=== PATIENT | female | born 1995 | race Caucasian/White ===

== ENCOUNTER 2020-04-09 05:46 | Emergency (ER) | payer OTHER, SELFPAY ==
--- OUTSIDE RECORDS SUMMARY | 2020-04-09 05:49 | XMS REPORT | Summary of Care ---
:1994 Author Organization [facility] Address [address] [place] [address] Care Team Providers Name Role Phone Cary Llamas SOLAR TECH Primary Care Provider Reason for Visit Reason Comments CONTROL telehealth Encounter Details Date Type Department Care Team Description 01/28/2020 Telemedicine Visit [facility]- [place], Oth er general [place] Chanell Riddle, counseling and advice [address] [facility] for contraceptive [place], [place] [address] ( Primary [phone] ST Dx) [phone] [place], [place] [address] Allergies No Known Allergiesdocumented as of this encounter (statuses as of 01/28/2020) Medications Medication Sig Dispensed Refills Start Date End Date Status norgestimate-ethinyl Take 1 tablet by 1 Package 2 01/28/2020 Active estradiol (ORTHO mouth daily. TRI-CYCLEN, 28,) 0.18/0.215/0.25 mg-35 mcg (28) tabletIndications: Other general counseling and advice for contraceptive management documented as of this encounter (statuses as of 01/28/2020) Active Problems Problem Noted Date Well woman exam 12/10/2019 Screen for STD (sexually transmitted disease) 12/10/19 20 Encounter for other general counseling or advice on co ntraception 12/10/2019 BMI 24.0-24.9, adult 12/10/2019 Tobacco use disorder 12/10/2019 Vaginal discharge 12/10/2019 documented as of this encounter (statuses as of 01/28/2020) Social History Tobacco Use Types Packs/Day Years Used Date Current Some Day Smoker Star esequiel: 07/10/2019 Smokeless Tobacco: Never Used Comments: vapes Alcohol Use Drinks/Week oz/Week Comments Yes occasional Sex Assigned at Date Recorded Not on file Job Start Date Occupation Industry Not on file Not on file Not on file Travel History Travel Start Travel End No recent travel history available. documented as of this encounter Last Filed Vital Signs Not on filedocumented in this encounter Progress Notes Chanell Joshi, DANAEP - 01/28/2020 3:45 PM CDT TELEHEALTH NOTE Verbal consent obtained from Patient: Tierra Wong due to the COVID-19 pandemic for telehealth services provided below. Communication with patient was conducted via Telephone. Location of Patient: Home Location of Provider: home Date of Service: 01/28/2020 Chief Complaint: control visit HPI: Tierra Wong is a 24 year old female with Past Medical History: Diagnosis Date Screen for STD (sexually transmitted disease) 12/10/2019 The patient visit is being conducted via telehealth on today. She reports she desires to start birthcontrol on today. She reports the last time she had intercourse was on last week without condoms butreports she used a plan b that same day. She reports her last menses 11/17/19, and report she became and had an 01/09/20. She reports she is waiting for her next cycle to start, she reports she should be having a menses within the next 2-3 weeks. She reports she desires to start ocp in the mean time until she can come in for nexplanon placement. She reports she was on pills about 5 year ago and was pleased with that method. MEDICATIONS: Current Outpatient Medications Medication Sig Dispense Refill norgestimate-ethinyl estradiol (ORTHO TRI-CYCLEN, 28,) 0.18/0.215/0.25 mg-35 mcg (28) tablet Take 1 tablet by mouth daily. 1 Package 2 No current facility-administered medications for this visit. ROS Constitutional: negative Eyes: negative Ears: negative Nose/Sinuses: negative Mouth/Throat: negative Cardiovascular: negative Respiratory: negative Gastrointestinal: negative Genitourinary: negative Musculoskeletal: negative Integumentary: negative Neuro: negative Psych: negative Endocrine: negative Hem/Lymph: negative Allergy/Immunology: negative TELEHEALTH EXAM Constitutional: alert and in no distress Respiratory: breathing comfortably Neuro: answers questions appropriately Psych: normal affect ASSESSMENT/ PLAN Tierra Wong is a 24 year old female with PMH as above presenting with: 1. Other general counseling and advice for contraceptive management Comment: desires ocp - norgestimate-ethinyl estradiol (ORTHO TRI-CYCLEN, 28,) 0.18/0.215/0.25 mg-35 mcg (28) tablet; Take1 tablet by mouth daily. Dispense: 1 Package; Refill: 2 Patient advised on starting ocp with next cycle, Sunday start, back up method for Weeks. she verbalized understanding, stating she will start the pills with next cycle, if she does not have a cycle in2 weeks she will call and make an appointment. Patient desires ocp for contraception. Reviewed risks/benefits/alternative contraceptive methods. After visit summary (AVS ) documentation will be available through [facility] for this encounter. A total of 11 minutes was spent on the Telephone with the patient. JONI Sahu documented in this encounter Plan of Treatment Date Type Specialty Care Team Description 05/10/2020 Office Visit [facility] Cary Llamas, SOLAR TECH [address] [place], [place] [address] [phone] Health Maintenance Due Date Last Done Comments DTaP,Tdap,and Td Vaccines (1 - 12/10/2020 P ostponed from 2005 Tdap) (Refused) INFLUENZA VACCINE (#1) 2020 Postponed from 06/29/2019 (Refused) VARICELLA VACCINES (1 of 2 - 12/10/2020 Pos tponed from 1995 2-dose childhood series) (Insura nce / Financial) PAP SMEAR 12/10/2022 12/10/2019 HPV VACCINES Discontinued PNEUMOCOCCAL 0-64 YEARS COMBINED Discontinued SERIES documented as of this encounter Results Not on filedocumented in this encounter Visit Diagnoses Diagnosis Other general counseling and advice for contraceptive management - Primary documented in this encounter Insurance Payer Benefit Plan / Subscriber ID Effective Dates Phone Addre ss Type Group [place] xxxxxxxxx 2019-Present Medicaid HEALTH PLAN - HEALTH MANAGED MEDICAID documented as of this encounter
--- OUTSIDE RECORDS SUMMARY | 2020-04-09 05:49 | XMS REPORT | Summary of Care ---
:1994 Author Organization [facility] Address [address] [place] [address] Care Team Providers Name Role Phone Cary Llamas Primary Care Provider Reason for Visit Reason Comments Appointment nexplanon placement Encounter Details Date Type Department Care Team Description 01/27/2020 Telephone [facility]- Lauren Llamas Appoi ntment (nexplanon Filley PA-C placement ) [address] [facility] [address] [facility] [place] [address] [place], [place] [address] Allergies No Known Allergiesdocumented as of this encounter (statuses as of 01/27/2020) Medications No known medicationsdocumented as of this encounter (statuses as of 01/27/2020) Active Problems Problem Noted Date Well woman exam 12/10/2019 Screen for STD (sexually transmitted disease) 12/10/19 20 Encounter for other general counseling or advice on co ntraception 12/10/2019 BMI 24.0-24.9, adult 12/10/2019 Tobacco use disorder 12/10/2019 Vaginal discharge 12/10/2019 documented as of this encounter (statuses as of 01/27/2020) Social History Tobacco Use Types Packs/Day Years [...] Signs Not on filedocumented in this encounter Plan of Treatment Date Type Specialty Care Team Description 01/28/2020 Telemedicine Visit [facility] [address] [place], [place] [address] [phone] Health Maintenance Due Date Last Done Comments [...] Results Not on filedocumented in this encounter Insurance Payer Benefit Plan / Subscriber ID Effective Dates Phone Addre ss Type Group [place] xxxxxxxxx 2019-Present Medicaid HEALTH PLAN - HEALTH MANAGED MEDICAID documented as of this encounter
--- OUTSIDE RECORDS SUMMARY | 2020-04-09 05:49 | XMS REPORT | Continuity of Care Document ---
:1994 Author Organization [facility] t Address [address] [place] [address] Care Team Providers Name Role Phone Marti Tripathi Attending Clinician Problems Condition Condition Condition Status Onset Resolution Last Treating Co mments Source Name Details Category Date Date Treatment Clinician Date Bilateral Bilateral Problem Active [facility] paresthesi paresthesi Me moria a a [facility] Depression Depression Diagnosis Active [facility] screening screening [facility] - Memoria l [facility]ics Well adult Well adult Diagnosis Active [facility] Allergies, Adverse Reactions, Alerts This patient has no known allergies or adverse reactions. Medications This patient has no known medications. Procedures This patient has no known procedures. Encounters Start End Encounter Admission Attending Care Care Encounter Source Date/Time Date/Time Type Type Clinicians Facility Department ID 2020-04-08 2020-04-08 Telephone [facility] [id number] 00:00:00 00:00:00 Cary Kidd PRIVATE EQUITY ANALYST [id number] [facility] [id number] MATERNAL [id number] & CHILD 107 [facility] 2020-03-26 2020-03-26 Telephone [facility] [id number] 00:00:00 00:00:00 Cary Kidd PRIVATE EQUITY ANALYST [id number] [facility] [id number] MATERNAL [id number] & CHILD 107 [facility] 2019-07-31 2019-07-31 [facility] [id number] 09:00:00 09:00:00 [facility] Medicine Outpati ent Clinics Results This patient has no known results.
--- OUTSIDE RECORDS SUMMARY | 2020-04-09 05:50 | XMS REPORT | Summary of Care ---
:1994 Author Organization [facility] Address [address] [place] [address] Care Team Providers Name Role Phone Cary Llamas [facility] Primary Care Provider Reason for Visit Reason Comments STD Testing Vaginal Discharge Encounter Details Date Type Department Care Team Description 03/24/2020 Office Visit [facility]- Aracelis Schultz Ve nereal disease screening (Primary Dx); [facility] Vaginal discharge [address] [place] [address] [place], [place] [address] [place], [place] [address] Allergies No Known Allergiesdocumented as of this encounter (statuses as of 03/24/2020) Medications Medication Sig Dispensed Refills Start Date End Date Status norgestimate-ethinyl Take 1 tablet by 1 Package 2 01/28/2020 Active estradiol (ORTHO mouth daily. TRI-CYCLEN, 28,) 0.18/0.215/0.25 mg-35 mcg (28) tabletIndications: Other general counseling and advice for contraceptive management documented as of this encounter (statuses as of 03/24/2020) Active Problems Problem Noted Date Well woman exam 12/10/2019 Screen for STD (sexually transmitted disease) 12/10/19 20 Venereal disease screening 12/10/2019 BMI 24.0-24.9, adult 12/10/2019 Tobacco use disorder 12/10/2019 Vaginal discharge 12/10/2019 documented as of this encounter (statuses as of 03/24/2020) Social History Tobacco Use Types Packs/Day Years Used Date Current Some Day Smoker Star esequiel: 07/10/2019 Smokeless Tobacco: Never Used Comments: vapes Alcohol Use Drinks/Week oz/Week Comments Yes occasional Sex Assigned at Date Recorded Not on file Job Start Date Occupation Industry Not on file Not on file Not on file Travel History Travel Start Travel End No recent travel history available. COVID-19 Exposure Response Date Recorded In the last month, have you been in contact with No / Unsure 03/24/2020 4:01 PM CDT someone who was confirmed or suspected to have Coronavirus / COVID-19? documented as of this encounter Last Filed Vital Signs Vital Sign Reading Time Taken Comments Blood Pressure 118/74 03/24/2020 4:01 PM CDT Pulse 92 03/24/2020 4:01 PM CDT Temperature 36.1 C (97 F) 03/24/2020 4:01 PM CDT Respiratory Rate 16 03/24/2020 4:01 PM CDT Oxygen Saturation - - Inhaled Oxygen Concentration - - Weight 59.2 kg (130 lb 7 oz) 03/24/2020 4:01 PM CDT Height 154.9 cm (5' 1") 03/24/2020 4:01 PM CDT Body Mass Index 24.65 03/24/2020 4:01 PM CDT documented in this encounter Progress Notes Aracelis Schultz, LAN - 03/24/2020 3:30 PM CDT Chief complaint: Chief Complaint Patient presents with STD Testing Vaginal Discharge HPI Patient here for STD and STI testing. Patient complains of vaginal discharge. Patient denies need for BCM at this time. Patient denies current or past physical, sexual or emotional abuse. Histories OB History Para Term AB Living 8 2 2 6 2 SAB TAB Ectopic Multiple Live Births 1 5 2 # Outcome Date GA Lbr Rocael/2nd Weight Sex Delivery Anes PTL Lv 8 Term 05/23/17 38w0d F CS-Unspec LIZETTE 7 Term 10/24/12 39w0d M CS-Unspec LIZETTE 6 SAB 11/2011 5 TAB 4 TAB 3 TAB 2 TAB 1 TAB Past Medical History: Diagnosis Date Screen for STD (sexually transmitted disease) 12/10/2019 Family History Problem Relation Age of Onset No Significant Medical Problems Mother No Significant Medical Problems Father No Significant Medical Problems Sister No Significant Medical Problems Brother No Significant Medical Problems Maternal Aunt No Significant Medical Problems Maternal Uncle No Significant Medical Problems Paternal Aunt No Significant Medical Problems Paternal Uncle No Significant Medical Problems Maternal Grandmother No Significant Medical Problems Maternal Grandfather No Significant Medical Problems Paternal Grandmother No Significant Medical Problems Paternal Grandfather Family Status Relation Name Status Mo Alive Fa Alive Sis Alive Bro Alive MAunt Alive MUnc Alive PAunt Alive PUnc Alive MGMo Alive MGFa Alive PGMo Alive PGFa Alive Past Surgical History: Procedure Laterality Date SECTION Social History Socioeconomic History Marital status: Single Spouse name: Not on file Number of children: Not on file Years of education: Not on file Highest education level: Not on file Occupational History Not on file Social Needs Financial resource strain: Not on file Food insecurity: Worry: Not on file Inability: Not on file Transportation needs: Medical: Not on file Non-medical: Not on file Tobacco Use Smoking status: Current Some Day Smoker Start date: 07/10/2019 Smokeless tobacco: Never Used Tobacco comment: vapes Substance and Sexual Activity Alcohol use: Yes Comment: occasional Drug use: Never Sexual activity: Yes Partners: Male Comment: last sexual intercourse 11/30/2019 Lifestyle Physical activity: Days per week: Not on file Minutes per session: Not on file Stress: Not on file Relationships Social connections: Talks on phone: Not on file Gets together: Not on file Attends catholic service: Not on file Active member of club or organization: Not on file Attends meetings of clubs or organizations: Not on file Relationship status: Not on file Intimate partner violence: Fear of current or ex partner: Not on file Emotionally abused: Not on file Physically abused: Not on file Forced sexual activity: Not on file Other Topics Concern Not on file Social History Narrative Restorationism preference is none. Patient lives with child Social History Substance and Sexual Activity Sexual Activity Yes Partners: Male Comment: last sexual intercourse 11/30/2019 Labs Labs are pending. Radiology No new radiology. Allergies Tierra has No Known Allergies. Medications Tierra has a current medication list which includes the following prescription(s): norgestimate-ethinyl estradiol. Review of Systems Genitourinary: Positive for vaginal discharge. BP 118/74 (BP Location: Right arm, Patient Position: Sitting, BP CUFF SIZE: Adult Medium) | Pulse 92 | Temp 36.1 C (97 F) (Oral) | Resp 16 | Ht 5' 1" (1.549 m) | Wt 130 lb 7 oz (59.2 kg) | BMI 24.65 kg/m Pregravid BMI: Could not be calculated Physical Exam Vitals reviewed. Constitutional: She is oriented to person, place, and time. She appears well- developed and well-nourished. Her body habitus is normal. Cardiovascular: Regular rate and rhythm. No peripheral edema present. Pulmonary/Chest: Normal inspiratory effort. Neuro/Psychiatric: Inappropriate mood and affect. She is oriented to person, place, and time. Skin: Skin normal. No lesion, no rash and no ulceration present. External genitalia: Normal external genitalia appropriate for age. Vagina: None noted, Affirm cultures taken Cervix: Normal cervix. Assessment/Plan Venereal disease screening (primary encounter diagnosis) Comment: per patient request Plan: GC & CHLAMYDIA AMPLIFIED ASSAY, [facility] ONLY - SYPHILIS IGG/IGM, HIV 1/2 AG-AB WITH REFLEX, GC & CHLAMYDIA AMPLIFIED ASSAY, [facility] ONLY - SYPHILIS IGG/IGM, HIV 1/2 AG-AB WITH REFLEX Vaginal discharge Comment: see physical exam Plan: [facility] ONLY - VAGINAL PATHOGENS BY DNA PROBE Return to clinic in 1 year for WWE or PRN. Discussed treatment options. Medications as ordered. Reviewed patient instructions and provided printed copy. This visit did not involve counseling and coordination that comprised more than 50% of the visit time. LAN Butt 03/24/2020 4:18 PM documented in this encounter Plan of Treatment Date Type Specialty Care Team Description 05/10/2020 Office Visit [facility] Cary Llamas FNP [address] [place], [place] [address] [phone] Name Type Priority Associated Diagnoses Date/Ti me GC & CHLAMYDIA AMPLIFIED LAB Routine Venereal disease 03/24/2020 3:59 PM CDT ASSAY screening [facility] ONLY - SYPHILIS LAB Routine Venereal disease 3:59 PM CDT IGG/IGM screening HIV 1/2 AG-AB WITH LAB Routine Venereal disease 03/24 3:59 PM CDT REFLEX screening [facility] ONLY - VAGINAL LAB Routine Vaginal discharge 4:16 PM CDT PATHOGENS BY DNA PROBE Name Type Priority Associated Diagnoses Order S chedule GC & CHLAMYDIA AMPLIFIED LAB Routine Venereal disease Expected: 03/24/2020, ASSAY screening Expires: 2020 [facility] ONLY - SYPHILIS LAB Routine Venereal disease Exp ected: 03/24/2020, IGG/IGM screening Expires: 2020 HIV 1/2 AG-AB WITH LAB Routine Venereal disease Expec esequiel: 03/24/2020, REFLEX screening Expires: 2020 Health Maintenance Due Date Last Done Comments DTaP,Tdap,and Td Vaccines (1 - 12/10/2020 P ostponed from 2005 Tdap) (Refused) INFLUENZA VACCINE (Season Ended) 2020 Postponed from 06/29/2020 (Refused) VARICELLA VACCINES ( - 12/10/2020 Pos tponed from 1995 2-dose childhood series) (Insura nce / Financial) PAP SMEAR 12/10/2022 12/10/2019 HPV VACCINES Discontinued PNEUMOCOCCAL 0-64 YEARS COMBINED Discontinued SERIES documented as of this encounter Results Not on filedocumented in this encounter Visit Diagnoses Diagnosis Venereal disease screening - Primary Screening examination for venereal disea se Vaginal discharge Leukorrhea, not specified as infective documented in this encounter Insurance Payer Benefit Plan / Subscriber ID Effective Dates Phone Addre ss Type Group [place] xxxxxxxxx 2019-Present Medicaid HEALTH PLAN - HEALTH MANAGED MEDICAID documented as of this encounter
--- OUTSIDE RECORDS SUMMARY | 2020-04-09 05:50 | XMS REPORT | Summary of Care ---
:1994 Author Organization [facility] Address [address] [place] [address] Care Team Providers Name Role Phone Cary Llamas Primary Care Provider Reason for Visit Reason Comments Results bv Encounter Details Date Type Department Care Team Description 03/26/2020 Telephone [facility]- A Cary Pike, LAN Results (bv) [address] [place] [address] [facility] A [phone] [place], [place] [address] Allergies No Known Allergiesdocumented as of this encounter (statuses as of 03/26/2020) Medications Medication Sig Dispensed Refills Start Date End Date Status norgestimate-ethinyl Take 1 tablet by 1 Package 2 01/28/2020 Active estradiol (ORTHO mouth daily. TRI-CYCLEN, 28,) 0.18/0.215/0.25 mg-35 mcg (28) tabletIndications: Other general counseling and advice for contraceptive management metroNIDAZOLE 500 mg Take 1 tablet by 14 tablet 0 03/26/2020 Active tabletIndications: BV mouth 2 (two) (bacterial vaginosis) times daily. documented as of this encounter (statuses as of 03/26/2020) Active Problems Problem Noted Date Well woman exam 12/10/2019 Screen for STD (sexually transmitted disease) 12/10/19 20 Venereal disease screening 12/10/2019 BMI 24.0-24.9, adult 12/10/2019 Tobacco use disorder 12/10/2019 Vaginal discharge 12/10/2019 documented as of this encounter (statuses as of 03/26/2020) Social History Tobacco Use Types Packs/Day Years [...] 05/10/2020 Office Visit [facility] Cary Llamas, [employer] [address] [place], [place] [address] [phone] Health Maintenance Due Date Last Done Comments DTaP,Tdap,and Td Vaccines (1 - 12/10/2020 P ostponed from 2005 Tdap) (Refused) INFLUENZA VACCINE (Season Ended) 2020 Postponed from 06/29/2020 (Refused) VARICELLA VACCINES (1 of 2 - 12/10/2020 Pos tponed from 1995 2-dose childhood series) (Insura nce / Financial) Depression Screening 03/24/2021 03/24/2020 PAP SMEAR 12/10/2022 12/10/2019 HPV VACCINES Discontinued PNEUMOCOCCAL 0-64 YEARS COMBINED Discontinued SERIES documented as of this encounter Results Not on filedocumented in this encounter Visit Diagnoses Diagnosis BV (bacterial vaginosis) - Primary Vaginitis and vulvovaginitis, unspecifie d documented in this encounter Insurance Payer Benefit Plan / Subscriber ID Effective Dates Phone Addre ss Type Group [place] xxxxxxxxx 2019-Present Medicaid HEALTH PLAN - HEALTH MANAGED MEDICAID documented as of this encounter
--- OUTSIDE RECORDS SUMMARY | 2020-04-09 05:50 | XMS REPORT | Summary of Care ---
:1994 Author Organization [facility] Address [address] [place] [address] Care Team Providers Name Role Phone Cary Llamas [facility] Primary Care Provider Reason for Visit Reason Comments STD Testing Vaginal Discharge Encounter Details Date Type Department Care Team Description 03/24/2020 Office Visit [facility]- Aracelis Schultz Ve nereal disease screening (Primary Dx); [facility] Vaginal discharge [address] [place] [address] [place] [address] [place], [place] [address] Allergies No Known Allergiesdocumented as of this [...] file Gets together: Not on file Attends hoahaoism service: Not on file Active member of [...] Concern Not on file Social History Narrative Jewish preference is none. Patient lives with child [...] FNP [address] [place], [place] [address] [phone] Name Type Priority Associated Diagnoses Date/Ti me [...] Effective Dates Phone Addre ss Type Group [place] [facility] [place]DR[place] xxxxxxxxx 2019-Present Medicaid HEALTH PLAN - HEALTH MANAGED MEDICAID documented as of this encounter
--- OUTSIDE RECORDS SUMMARY | 2020-04-09 05:50 | XMS REPORT | Summary of Care ---
:1995 Author Organization [facility] Address [address] [place] [address] Care Team Providers Name Role Phone Cary LlamasP Primary Care Provider Reason for Visit Reason Comments Rx Concern/Question Encounter Details Date Type Department Care Team Description [facility]/30[facility]2020 [facility], [facility]Question [facility] [address] [address] [place] [address] [place] [address] [phone] Allergies No Known Allergiesdocumented as of this encounter (statuses as of 01/30/2020) Medications Medication Sig Dispensed Refills Start Date End Date Status norgestimate-ethinyl Take 1 tablet by 1 Package 2 01/28/2020 Active estradiol (ORTHO mouth daily. TRI-CYCLEN, 28,) 0.18/0.215/0.25 mg-35 mcg (28) tabletIndications: Other general counseling and advice for contraceptive management documented as of this encounter (statuses as of 01/30/2020) Active Problems Problem Noted Date Well woman exam 12/10/2019 Screen for STD (sexually transmitted disease) 12/10/19 20 Encounter for other general counseling or advice on co ntraception 12/10/2019 BMI 24.0-24.9, adult 12/10/2019 Tobacco use disorder 12/10/2019 Vaginal discharge 12/10/2019 documented as of this encounter (statuses as of 01/30/2020) Social History Tobacco Use Types Packs/Day Years [...] 05/10/2020 Office Visit [facility] Cary Llamas, OVEN UNLOADER [address] [place], [place] [address] [phone] Health Maintenance Due Date Last Done Comments [...] Effective Dates Phone Addre ss Type Group [place] [facility] [place] xxxxxxxxx 2019-Present Medicaid HEALTH PLAN - HEALTH MANAGED MEDICAID documented as of this encounter
--- OUTSIDE RECORDS SUMMARY | 2020-04-09 05:50 | XMS REPORT | Summary of Care ---
:1995 Author Organization [facility] Address [address] [place] [address] Care Team Providers Name Role Phone Cary Llamas Primary Care Provider Reason for Visit Reason Comments Results bv Encounter Details Date Type Department Care Team Description 03/26/2020 Telephone [facility]- A Cary Pike, LAN Results (bv) [address] [place] [address] [place] [address] 955 [facility] A [phone] [place], [place] [address] Allergies No Known Allergiesdocumented [...] 05/10/2020 Office Visit [facility] Cary Llamas, NOTCHER [address] [place], [place] [address] [phone] Health Maintenance Due Date Last Done Comments [...]
--- OUTSIDE RECORDS SUMMARY | 2020-04-09 05:50 | XMS REPORT | Summary of Care ---
:1995 Author Organization [facility] Address [address] [place] [address] Care Team Providers Name Role Phone Cary LlamasP Primary Care Provider Reason for Visit Reason Comments Rx Concern/Question Encounter Details Date Type Department Care Team Description 01/30/2020 [facility], Rx Concern/Question [facility] [address] [address] [place] [address] [place] [address] [phone] Allergies No Known Allergiesdocumented as of this [...] 05/10/2020 Office Visit [facility] Cary Llamas, SCHOOL PHYSICAL THERAPIST [address] [place], [place] [address] [phone] Health Maintenance Due Date Last Done Comments [...] Effective Dates Phone Addre ss Type Group [place] [facility] [place] xxxxxxxxx 2019-Present Medicaid HEALTH PLAN - HEALTH MANAGED MEDICAID documented as of this encounter
--- OUTSIDE RECORDS SUMMARY | 2020-04-09 05:51 | XMS REPORT | Summary of Care ---
:1995 Author Organization [facility] Address [address] [place] [address] Care Team Providers Name Role Phone Cary Llamas [facility] Primary Care Provider Reason for Visit Reason Comments Results gonorrhea Rx Concern/Question Encounter Details Date Type Department Care Team Description 03/26/2020 Telephone [facility]- Cary Llamas, Res ults (gonorrhea ); [facility] Rx Concern/Question [address] [place] [address] [facility] [place] [address] [place], [place] [id number] Allergies No Known Allergiesdocumented as of this [...] mouth 2 (two) (bacterial vaginosis) times daily. azithromycin 500 mg Take 2 tablets 2 tablet 0 03/26/202002/27 Active tabletIndications: by mouth once Gonorrhea now for 1 dose. documented as of this encounter (statuses as [...] Treatment Date Type Specialty Care Team Description 03/29/2020 Nurse Visit [facility] Visit, [facility] Nurse 05/10/2020 Office Visit [facility] Cary Llamas, GEOSPATIAL IMAGERY INTELLIGENCE ANALYST [address] [place], [place] [address] [phone] Health Maintenance Due Date Last Done Comments [...] filedocumented in this encounter Visit Diagnoses Diagnosis Gonorrhea - Primary Gonococcal infection (acute) of lower ge nitourinary tract documented in this encounter Insurance Payer Benefit Plan / Subscriber ID Effective Dates Phone Addre ss Type Group [place] [facility] [place] xxxxxxxxx 2019-Present Medicaid HEALTH PLAN - HEALTH MANAGED MEDICAID documented as of this encounter
--- OUTSIDE RECORDS SUMMARY | 2020-04-09 05:51 | XMS REPORT | Summary of Care ---
:1995 Author Organization [facility] Address [address] [place] [address] Care Team Providers Name Role Phone Cary Llamas Primary Care Provider Reason for Visit Reason Comments Results bv Encounter Details Date Type Department Care Team Description 03/26/2020 Telephone [facility]- A Cary Pike, LAN Results (bv) [address] [place] [address] [place] [address] [facility] A [phone] [place], [place] [address] Allergies No Known Allergiesdocumented [...] 05/10/2020 Office Visit [facility] Cary Llamas, DISTRIBUTION DESIGNER [address] [place], [place] [address] [phone] Health Maintenance Due Date Last Done Comments [...]
--- OUTSIDE RECORDS SUMMARY | 2020-04-09 05:51 | XMS REPORT | Summary of Care ---
:1995 Author Organization [facility] Address [address] [place] [address] Care Team Providers Name Role Phone Cary Llamas [facility] Primary Care Provider Reason for Visit Reason Comments Results gonorrhea Rx Concern/Question Encounter Details Date Type Department Care Team Description 03/26/2020 Telephone [facility]- Cary Llamas, Res ults (gonorrhea ); [facility] Rx Concern/Question [address] [place] [address] [facility] [place] [address] [place], [place] [address] Allergies No Known Allergiesdocumented as of this [...] 05/10/2020 Office Visit [facility] Cary Llamas, SUPERVISOR CIGAR MAKING MACHINE [address] [place], [place] [address] [phone] Health Maintenance Due Date Last Done Comments [...]
--- OUTSIDE RECORDS SUMMARY | 2020-04-09 05:51 | XMS REPORT | Summary of Care ---
:1995 Author Organization [facility] Address [address] [place] [address] Care Team Providers Name Role Phone Cary Llamas [facility] Primary Care Provider Reason for Visit Reason Comments Results Rx Concern/Question Encounter Details Date Type Department Care Team Description 03/26/2020 Telephone [facility]- Cary Llamas, Res ults; Rx [facility] Concern/Question [address] [place] [address] [facility] A [phone] [place], [place] [address] Allergies No Known Allergiesdocumented as of this [...] 05/10/2020 Office Visit [facility] Cary Llamas, RFID DEVELOPER [address] [place], [place] [address] [phone] Health Maintenance Due Date Last Done Comments [...]
--- OUTSIDE RECORDS SUMMARY | 2020-04-09 05:51 | XMS REPORT | Summary of Care ---
:1995 Author Organization [facility] Address [address] [place] [address] Care Team Providers Name Role Phone Cary Llamas Primary Care Provider Reason for Visit Reason Comments Results bv Encounter Details Date Type Department Care Team Description 03/26/2020 Telephone [facility]- A Cary Pike, LAN Results (bv) [address] [place] [address] [place] [address] [facility] A [phone] [place], [place] [address] Allergies No Known Allergiesdocumented [...] 05/10/2020 Office Visit [facility] Cary Llamas, INSPECTOR EXHAUST EMISSIONS [address] [place], [place] [address] [phone] Health Maintenance Due Date Last Done Comments [...]
--- OUTSIDE RECORDS SUMMARY | 2020-04-09 05:51 | XMS REPORT | Summary of Care ---
:1995 Author Organization [facility] Address [address] [place] [address] Care Team Providers Name Role Phone Cary Llamas [facility] Primary Care Provider Reason for Visit Reason Comments Results gonorrhea Rx Concern/Question Encounter Details Date Type Department Care Team Description 03/26/2020 Telephone [facility]- Cary Llamas, Res ults (gonorrhea ); [facility] Rx Concern/Question [address] [place] [address] [facility] A [address] [place], [place] [address] Allergies No Known Allergiesdocumented as of this [...] 05/10/2020 Office Visit [facility] Cary Llamas, PATTERN GRADER [address] [place], [place] [address] [phone] Health Maintenance Due Date Last Done Comments [...]
--- OUTSIDE RECORDS SUMMARY | 2020-04-09 05:52 | XMS REPORT | Summary of Care ---
:1995 Author Organization [facility] Address [address] [place] [address] Care Team Providers Name Role Phone Cary LlamasP Primary Care Provider Reason for Visit Reason Comments Assessment Encounter Details Date Type Department Care Team Description 04/08/2020 Telephone [facility]- A Cary Pike, [facility] Assessment [address] [facility] [address] [place] [address] 955 [facility] [phone] [place], [place] [address] Allergies No Known Allergiesdocumented as of this encounter (statuses as of 04/08/2020) Medications Medication Sig Dispensed Refills Start Date [...] as of this encounter (statuses as of 04/08/2020) Active Problems Problem Noted Date Well woman exam 12/10/2019 Screen for STD (sexually transmitted disease) 12/10/19 20 Venereal disease screening 12/10/2019 BMI 24.0-24.9, adult 12/10/2019 Tobacco use disorder 12/10/2019 Vaginal discharge 12/10/2019 documented as of this encounter (statuses as of 04/08/2020) Social History Tobacco Use Types Packs/Day Years [...] been in contact with No / Unsure 03/29/2020 8:29 AM CDT someone who was confirmed or suspected to have Coronavirus / COVID-19? documented as of this encounter Last Filed Vital Signs Not on filedocumented in this encounter Plan of Treatment Date Type Specialty Care Team Description 04/09/2020 Clinical Technician Visit [facility], [facility] 05/10/2020 Office Visit [facility] Cary Llamas, ROENTGENOLOGIST [address] [place], [place] [address] [phone] 06/29/2020 Clinical Technician Visit [facility], [facility] Health Maintenance Due Date Last Done Comments [...]
--- NOTE | 2020-04-09 06:11 | ER ---
Nurse's Notes [facility] Name: Tierra Wong Age: 24 yrs Sex: Female : 1995 Arrival Date: 04/09/2020 Time: 05:49 Bed 5 Private MD: Diagnosis: Contact with and (suspected) exposure to infections with a predominantly sexual mode of transmission Presentation: 04/09 05:51 Acuity: [place] 5 sg 05:51 Coronavirus screen: Proceed with normal triage. Ebola Screen: Patient negative for sg fever greater than or equal to 101.5 degrees Fahrenheit, and additional compatible Ebola Virus Disease symptoms Patient denies exposure to infectious person. Patient denies travel to an Ebola-affected area in the 21 days before illness onset. No symptoms or risks identified at this time. Initial Sepsis Screen: Does the patient meet any 2 criteria? No. Patient's initial sepsis screen is negative. Does the patient have a suspected source of infection? No. Patient's initial sepsis screen is negative. Risk Assessment: Do you want to hurt yourself or someone else? Patient reports no desire to harm self or others. Care prior to arrival: None. 05:53 Chief complaint: Patient states: I believe I was exposed to an STD. Onset of symptoms sg was April 09, 2020. Transition of care: patient was not received from another setting of care. 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 - Social history:: Smoking status: Patient denies any tobacco usage or history of. - Family history:: not pertinent. - Hospitalizations: : No recent hospitalization is reported. Screenin:08 Abuse screen: Denies threats or abuse. Nutritional screening: No deficits noted. jd3 Tuberculosis screening: No symptoms or risk factors identified. Fall Risk Ambulatory Aid- None/Bed Rest/Nurse Assist (0 pts). Gait- Normal/Bed Rest/Wheelchair (0 pts) Mental Status- Oriented to own ability (0 pts). Total Redman Fall Scale indicates No Risk (0-24 pts). Assessment: 06:07 General: Appears in no apparent distress. comfortable, Behavior is calm, cooperative, jd3 appropriate for age. Pain: Denies pain. Neuro: Level of Consciousness is awake, alert, obeys commands, Oriented to person, place, time, situation. Cardiovascular: Denies chest pain, Capillary refill < 3 seconds Patient's skin is warm and dry. Respiratory: Airway is patent Respiratory effort is even, unlabored, Respiratory pattern is regular, symmetrical, Denies cough, shortness of breath. GI: No signs and/or symptoms were reported involving the gastrointestinal system. : Reports burning with urination. EENT: No signs and/or symptoms were reported regarding the EENT system. Derm: Skin is intact, Skin is dry, Skin is normal, Skin temperature is warm. Musculoskeletal: Circulation, motion, and sensation intact. Range of motion: intact in all extremities. 06:36 Reassessment: Patient appears in no apparent distress at this time. Patient and/or jd3 family updated on plan of care and expected duration. Pain level reassessed. Patient is alert, oriented x 3, equal unlabored respirations, skin warm/dry/pink. pt reported understanding of discharge instructions, even and steady gait upon discharge. Vital Signs: 06:05 BP 114 / 77; Pulse 72; Temp 97.8; Pulse Ox 100% ; tt3 06:05 Weight 58.97 kg (R); Height 5 ft. 1 in. (154.94 cm) (R); Pain 0/10; jd3 06:05 Body Mass Index 24.56 (58.97 kg, 154.94 cm) jd3 ED Course: 05:49 Patient arrived in ED. es 05:51 Triage completed. sg 05:51 Saud Pineda MD is Attending Physician. rn 05:51 Arm band placed on. sg 05:58 Philip Cho RN is Primary Nurse. jd3 06:09 Patient has correct armband on for positive identification. Bed in low position. Call jd3 light in reach. Side rails up X 1. Adult w/ patient. Pulse ox on. NIBP on. 06:35 No provider procedures requiring assistance completed. Patient did not have IV access jd3 during this emergency room visit. Administered Medications: 03:15 Drug: Flagyl 2 grams Route: PO; jb4 06:30 Follow up: Response: No adverse reaction jd3 06:15 Drug: Zithromax 1 grams Route: PO; jb4 06:30 Follow up: Response: No adverse reaction jd3 06:19 Drug: Rocephin (cefTRIAXone) 250 mg Route: IM; Site: right gluteus; jb4 06:35 Follow up: Response: No adverse reaction jd3 Outcome: 06:10 Discharge ordered by . rn 06:35 Discharged to home ambulatory. jd3 06:35 Condition: stable 06:35 Discharge instructions given to patient, Instructed on discharge instructions, follow up and referral plans. Demonstrated understanding of instructions, follow-up care. 06:36 Patient left the ED. jd3 Signatures: Zohaib Pena RN Janina Abbott Roman, MD MD rn Bryson, James, RN RN jb4 Philip Cho RN RN jd3 Ashu Omalley tt3
--- NOTE | 2020-04-09 06:11 | EDPHYS ---
Physician Documentation [facility] Name: Tierra Wong Age: 24 yrs Sex: Female : 1995 Arrival Date: 04/09/2020 Time: 05:49 Bed 5 Private MD: ED Physician Saud Pineda HPI: 04/09 05:57 This 24 yrs old Female presents to ER via Ambulatory with complaints of STD rn Exposure. 05:57 The patient presents with a possible exposure to a sexually transmitted disease, rn gonorrhea. Onset: The symptoms/episode began/occurred at an unknown time. Modifying factors: The symptoms are alleviated by nothing, the symptoms are aggravated by nothing. Severity of symptoms:. The patient has not experienced similar symptoms in the past. The patient has not recently seen a physician. Reports notified by someone that was tested for and confirmed with gonorrhea, patient is not having vaginal discharge, denies being , no abd pain, + dysuria. . 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 - Social history:: Smoking status: Patient denies any tobacco usage or history of. - Family history:: not pertinent. - Hospitalizations: : No recent hospitalization is reported. ROS: 05:57 Constitutional: Negative for fever, chills, and weight loss, Abdomen/GI: Negative for rn abdominal pain, nausea, vomiting, diarrhea, and constipation, Back: Negative for injury and pain, : Negative for injury, bleeding, discharge, and swelling. Exam: 05:57 Constitutional: This is a well developed, well nourished patient who is awake, alert, rn and in no acute distress. Abdomen/GI: soft, non-tender, no masses or rebound Skin: Warm, dry Vital Signs: 06:05 BP 114 / 77; Pulse 72; Temp 97.8; Pulse Ox 100% ; tt3 06:05 Weight 58.97 kg (R); Height 5 ft. 1 in. (154.94 cm) (R); Pain 0/10; jd3 06:05 Body Mass Index 24.56 (58.97 kg, 154.94 cm) jd3 MDM: 05:51 Patient medically screened. rn 06:09 Differential diagnosis: urinary tract infection, STI. Data reviewed: vital signs, rn nurses notes, lab test result(s), urinalysis, UPT:. Counseling: I had a detailed discussion with the patient and/or guardian regarding: the historical points, exam findings, and any diagnostic results supporting the discharge/admit diagnosis, lab results, the need for outpatient follow up, to return to the emergency department if symptoms worsen or persist or if there are any questions or concerns that arise at home. Special discussion: I discussed with the patient/guardian in detail that at this point there is no indication for admission to the hospital. It is understood, however, that if the symptoms persist or worsen the patient needs to return immediately for re-evaluation. 04/09 06:10 Order name: Urine Dipstick--Ancillary (enter results) [facility] 04/09 06:10 Order name: Urine --Ancillary (enter results) [facility] 04/09 05:56 Order name: Urine Dipstick-Ancillary (obtain specimen); Complete Time: 06:05 rn 04/09 05:56 Order name: Urine Test (obtain specimen); Complete Time: 06:05 rn Administered Medications: 03:15 Drug: Flagyl 2 grams Route: PO; jb4 06:30 Follow up: Response: No adverse reaction jd3 06:15 Drug: Zithromax 1 grams Route: PO; jb4 06:30 Follow up: Response: No adverse reaction jd3 06:19 Drug: Rocephin (cefTRIAXone) 250 mg Route: IM; Site: right gluteus; jb4 06:35 Follow up: Response: No adverse reaction jd3 Disposition: 04/09/20 06:10 Discharged to Home. Impression: Contact with and (suspected) exposure to infections with a predominantly sexual mode of transmission. - Condition is Stable. - Discharge Instructions: Sexually Transmitted Disease. - Medication Reconciliation Form, Thank You Letter, Antibiotic Education, Prescription Opioid Use form. - Follow up: Private Physician; When: As needed; Reason: Recheck today's complaints, Re-evaluation by your physician. - Problem is new. - Symptoms are unchanged. Signatures: Dispatcher [employer] EDMS Pena, ARELI Penny RN, Roman, MD MD rn Bryson, James, RN RN jb4 Philip Cho RN RN jd3 Corrections: (The following items were deleted from the chart) 06:36 06:10 04/09/2020 06:10 Discharged to Home. Impression: Contact with and (suspected) jd3 exposure to infections with a predominantly sexual mode of transmission. Condition is Stable. Forms are Medication Reconciliation Form, Thank You Letter, Antibiotic Education, Prescription Opioid Use. Follow up: Private Physician; When: As needed; Reason: Recheck today's complaints, Re-evaluation by your physician. Problem is new. Symptoms are unchanged. rn
[2020-04-09] MEDS ORDERED: AZITHROMYCIN 250 MG TAB ONE (06:18)
[2020-04-09] MEDS ORDERED: metroNIDAZOLE 500 MG TABLET ONE (06:18)
[2020-04-09] MEDS ORDERED: WATER FOR INJ,STERILE 10 ML ONE (06:18)
[2020-04-09] MEDS ORDERED: CEFTRIAXONE 250 MG/VIAL ONE (06:18)
[2020-04-09 06:41] VITALS: BP 114/77; TEMP 97.8; O2SAT 100
[2020-04-09 09:45] LABS: Urine Blood NEGATIVE (NEG); Urine Glucose NEGATIVE (NEG); Urine Protein NEGATIVE (NEG); Urine Specific Gravity >1.030 (1.005-1.030); Urine pH 5.5 (5.0-7.0)
== END 2020-04-09 06:36 | disposition home or self-care (01) ==
LOC: ER 05:46
DX: Z20.2 Contact with and (suspected) exposure to infections with a predominantly sexual mode of transmission (principal)
CPT/HCPCS: 81025; 81003; 96372; 99283; J0696

== ENCOUNTER 2020-05-19 13:54 | Emergency (ER) | payer OTHER ==
--- NOTE | 2020-05-19 15:08 | ER ---
Nurse's Notes [facility] Name: Tierra Wong Age: 24 yrs Sex: Female : 1995 Arrival Date: 05/19/2020 Time: 14:19 Bed 19 Private MD: Diagnosis: Unspecified sexually transmitted disease Presentation: 05/19 15:03 Chief complaint: Patient states: Partner reported having gonorrhea and I have discharge jl7 and burning x 1 week. Coronavirus screen: Patient denies a cough. Patient denies shortness of breath or difficulty breathing. Patient denies measured and/or subjective temperature greater than 100.4F prior to today's visit. Patient denies travel on a cruise ship or to a country the [facility] currently lists as an affected area. Patient denies contact with known and/or suspected case of COVID-19. Proceed with normal triage. Ebola Screen: No symptoms or risks identified at this time. Initial Sepsis Screen: Does the patient meet any 2 criteria? No. Patient's initial sepsis screen is negative. Does the patient have a suspected source of infection? No. Patient's initial sepsis screen is negative. Risk Assessment: Do you want to hurt yourself or someone else? Patient reports no desire to harm self or others. Onset of symptoms was April 13, 2020. Care prior to arrival: None. 15:03 Method Of Arrival: Ambulatory [facility] 15:03 Acuity: [place] 4 jl7 Triage Assessment: 15:06 General: Appears in no apparent distress. uncomfortable, Behavior is calm, cooperative, jl7 appropriate for age. Pain: Denies pain. : Reports discharge. 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 - Social history:: Smoking status: Patient denies any tobacco usage or history of. Screenin:24 Abuse screen: Denies threats or abuse. Nutritional screening: No deficits noted. Tuberculosis screening: No symptoms or risk factors identified. Fall Risk None identified. Assessment: 15:23 General: Appears in no apparent distress. Behavior is calm, cooperative, appropriate ah for age. Pain: Denies pain. Neuro: Level of Consciousness is awake, alert, obeys commands, Oriented to person, place, time, situation, Appropriate for age. : Reports burning with urination, discharge, yellow, Patient is sexually active. Derm: Skin is intact, is healthy with good turgor. Vital Signs: 15:03 BP 119 / 75; Pulse 96; Resp 17 S; Temp 98.3; Pulse Ox 99% on R/A; [facility] ED Course: 14:19 Patient arrived in ED. mr 15:01 Sarita Contreras FNP-C is [facility]. kb 15:01 Saud Pineda MD is Attending Physician. kb 15:05 Triage completed. [facility] 15:06 Arm band placed on right wrist. [facility] 15:11 Katie Garcia, RN is Primary Nurse. 15:15 No provider procedures requiring assistance completed. Patient did not have IV access ah during this emergency room visit. 15:24 Patient has correct armband on for positive identification. Bed in low position. ah Administered Medications: 15:22 Drug: Rocephin (cefTRIAXone) 250 mg Route: IM; Site: right ventrogluteal; 15:22 Drug: Zithromax 1 grams Route: PO; Outcome: 15:07 Discharge ordered by . kb 15:40 Discharged to home ambulatory. 15:40 Condition: good 15:40 Discharge instructions given to patient, Instructed on discharge instructions, follow up and referral plans. Demonstrated understanding of instructions, follow-up care. 16:01 Patient left the ED. Signatures: Sarita Contreras FNP-C FNP-Ckb Sanna PetersonHerminia RN RN [facility] Katie Garcia, RN RN
--- NOTE | 2020-05-19 15:08 | EDPHYS ---
Physician Documentation [facility] Name: Tierra Wong Age: 24 yrs Sex: Female : 1995 Arrival Date: 05/19/2020 Time: 14:19 Bed 19 Private MD: ED Physician Saud Pineda HPI: 05/19 15:09 This 24 yrs old Female presents to ER via Ambulatory with complaints of STD kb Exposure. 15:09 The patient presents with a possible exposure to a sexually transmitted disease, kb gonorrhea. Onset: The symptoms/episode began/occurred last week. Modifying factors: The symptoms are alleviated by nothing, the symptoms are aggravated by urinating. Associated signs and symptoms: Pertinent positives: dysuria, vaginal discharge, Pertinent negatives: constipation, cramping, diarrhea, dyspareunia, fever, hematuria, nausea, urinary frequency, vaginal bleeding, vomiting. Severity of symptoms: At their worst the symptoms were moderate, in the emergency department the symptoms are unchanged. The patient has not experienced similar symptoms in the past. The patient has not recently seen a physician. "My partner called and said he had gonorrhea and I've had symptoms of it." Reports vaginal discharge and dysuria. 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 - Social history:: Smoking status: Patient denies any tobacco usage or history of. ROS: 15:06 Constitutional: Negative for fever, chills, and weight loss, Cardiovascular: Negative kb for chest pain, palpitations, and edema, Respiratory: Negative for shortness of breath, cough, wheezing, and pleuritic chest pain, Abdomen/GI: Negative for abdominal pain, nausea, vomiting, diarrhea, and constipation, Back: Negative for injury and pain, MS/Extremity: Negative for injury and deformity, Skin: Negative for injury, rash, and discoloration, Neuro: Negative for headache, weakness, numbness, tingling, and seizure. 15:06 : Positive for burning with urination, vaginal discharge. Exam: 15:06 Constitutional: This is a well developed, well nourished patient who is awake, alert, kb and in no acute distress. Head/Face: Normocephalic, atraumatic. Chest/axilla: Normal chest wall appearance and motion. Nontender with no deformity. No lesions are appreciated. Cardiovascular: Regular rate and rhythm with a normal S1 and S2. No gallops, murmurs, or rubs. Normal PMI, no JVD. No pulse deficits. Respiratory: Lungs have equal breath sounds bilaterally, clear to auscultation and percussion. No rales, rhonchi or wheezes noted. No increased work of breathing, no retractions or nasal flaring. Abdomen/GI: Soft, non-tender, with normal bowel sounds. No distension or tympany. No guarding or rebound. No evidence of tenderness throughout. Skin: Warm, dry with normal turgor. Normal color with no rashes, no lesions, and no evidence of cellulitis. MS/ Extremity: Pulses equal, no cyanosis. Neurovascular intact. Full, normal range of motion. Neuro: Awake and alert, GCS 15, oriented to person, place, time, and situation. Cranial nerves II-XII grossly intact. Motor strength 5/5 in all extremities. Sensory grossly intact. Cerebellar exam normal. Normal gait. Vital Signs: 15:03 BP 119 / 75; Pulse 96; Resp 17 S; Temp 98.3; Pulse Ox 99% on R/A; jl7 MDM: 15:01 Patient medically screened. kb 15:06 Data reviewed: vital signs, nurses notes. Data interpreted: Pulse oximetry: on room air kb is 99 %. Interpretation: normal. Counseling: I had a detailed discussion with the patient and/or guardian regarding: the historical points, exam findings, and any diagnostic results supporting the discharge/admit diagnosis, the need for outpatient follow up, a family practitioner, to return to the emergency department if symptoms worsen or persist or if there are any questions or concerns that arise at home. Administered Medications: 15:22 Drug: Rocephin (cefTRIAXone) 250 mg Route: IM; Site: right ventrogluteal; 15:22 Drug: Zithromax 1 grams Route: PO; Disposition: 17:38 Co-signature as Attending Physician, Saud Pineda MD. rn Disposition: 05/19/20 15:07 Discharged to Home. Impression: Unspecified sexually transmitted disease. - Condition is Stable. - Discharge Instructions: Sexually Transmitted Disease, [id number]. - Medication Reconciliation Form, Thank You Letter, Antibiotic Education, Prescription Opioid Use form. - Follow up: Emergency Department; When: As needed; Reason: Worsening of condition. Follow up: Private Physician; When: 2 - 3 days; Reason: Recheck today's complaints, Continuance of care, Re-evaluation by your physician. Signatures: Sarita Contreras FNP-Venkatesh MONTENEGRO-Saud Easton MD MD rn Herminia Marcos RN RN jl7 Katie Garcia RN RN Corrections: (The following items were deleted from the chart) 16:01 15:07 05/19/2020 15:07 Discharged to Home. Impression: Unspecified sexually transmitted ah disease. Condition is Stable. Forms are Medication Reconciliation Form, Thank You Letter, Antibiotic Education, Prescription Opioid Use. Follow up: Emergency Department; When: As needed; Reason: Worsening of condition. Follow up: Private Physician; When: 2 - 3 days; Reason: Recheck today's complaints, Continuance of care, Re-evaluation by your physician. kb
[2020-05-19] MEDS ORDERED: CEFTRIAXONE 250 MG/VIAL ONE (15:24)
[2020-05-19] MEDS ORDERED: WATER FOR INJ,STERILE 10 ML ONE (15:24)
[2020-05-19] MEDS ORDERED: AZITHROMYCIN 250 MG TAB ONE (15:24)
[2020-05-19 21:43] VITALS: BP 119/75; TEMP 98.3; O2SAT 99
== END 2020-05-19 16:01 | disposition home or self-care (01) ==
LOC: ER 13:54
DX: A64 Unspecified sexually transmitted disease (principal)
CPT/HCPCS: 96372; 99283; J0696

== ENCOUNTER 2021-03-07 08:02 | Emergency (ER) | payer OTHER ==
--- OUTSIDE RECORDS SUMMARY | 2021-03-07 08:04 | XMS REPORT | Continuity of Care Document ---
:1995 Author Organization [facility] t Address [address] [place] [address] Care Team Providers Name Role Phone Venkatesh Batista Attending Clinician Problems Condition Condition Condition Status Onset Resolution Last Treating Co mments Source Name Details Category Date Date Treatment Clinician Date Bilateral Bilateral Problem Active [facility] Me moria a a l [facility] ent Clinics Depression Depression Diagnosis Active [facility] screening screening [facility] ent [facility] Well adult Well adult Diagnosis Active [facility] exam exam [facility] Allergies, Adverse Reactions, Alerts This patient has no known allergies or adverse reactions. Medications This patient has no known medications. Procedures This patient has no known procedures. 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
[2021-03-07 08:55] LABS: Urine Blood 2+ (Negative); Urine Glucose Trace (Negative); Urine Protein 2+ (Negative); Urine Specific Gravity >=1.030 (1.005-1.030)
[2021-03-07 09:30] LABS: Urine Specific Gravity/Preg >1.030 (1.005-1.030)
[2021-03-07] MEDS ORDERED: CEFTRIAXONE 1000 MG/VIAL ONE (10:13)
[2021-03-07] MEDS ORDERED: AZITHROMYCIN 250 MG TAB ONE (10:13)
[2021-03-07 10:20] LABS: Urine Bacteria 20-50 /HPF (<20); Urine Mucus LIGHT /HPF (NONE SEEN); Urine RBC >50 /HPF (NONE SEEN)
[2021-03-07] MEDS ORDERED: IBUPROFEN 200 MG TAB PO ONE (10:45)
[2021-03-07] MEDS ORDERED: IBUPROFEN 400 MG TAB ONE (10:45)
--- NOTE | 2021-03-07 10:53 | EDPHYS ---
Physician Documentation [facility] Name: Tierra Wong Age: 25 yrs Sex: Female : 1995 Arrival Date: 03/07/2021 Time: 08:03 Bed 16 Private MD: ED Physician Saud Pineda HPI: 03/07 10:03 This 25 yrs old Female presents to ER via Ambulatory with complaints of pm1 Burning with urination and vaginal discharge. 10:03 The patient presents with urinary symptoms, dysuria, vaginal discharge. pm1 10:03 Onset: The symptoms/episode began/occurred 3 day(s) ago. Modifying factors: The pm1 symptoms are alleviated by over the counter medications, the symptoms are aggravated by urinating. Associated signs and symptoms: Pertinent negatives: fever, vaginal bleeding, abdominal pain. Severity of symptoms: in the emergency department the symptoms are unchanged. The patient is sexually active, reportedly has a single partner, does not use protection during intercourse. The patient's method of control includes nothing. The patient has experienced a previous episode, and the symptoms today are exactly the same, with the same partner. The patient has not recently seen a physician. 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 - Social history:: Smoking status: Patient denies any tobacco usage or history of. ROS: 10:03 Positive for burning with urination, vaginal discharge, Negative for pelvic pain, pm1 flank pain. 10:03 Constitutional: Negative for fever, chills, and weight loss, Eyes: Negative for injury, pain, redness, and discharge, ENT: Negative for injury, pain, and discharge, Neck: Negative for injury, pain, and swelling, Cardiovascular: Negative for chest pain, palpitations, and edema, Respiratory: Negative for shortness of breath, cough, wheezing, and pleuritic chest pain, Abdomen/GI: Negative for abdominal pain, nausea, vomiting, diarrhea, and constipation, Back: Negative for injury and pain, MS/Extremity: Negative for injury and deformity, Skin: Negative for injury, rash, and discoloration, Neuro: Negative for headache, weakness, numbness, tingling, and seizure. Exam: 09:39 : Pelvic Exam: The exam is refused by the patient/guardian. The risks and pm1 consequences are understood by the patient, patient just wants the antibiotics for gonorrhea and chlamydia, Sexual behavior: the patient is sexually active. 10:03 Constitutional: This is a well developed, well nourished patient who is awake, alert, pm1 and in no acute distress. Head/Face: Normocephalic, atraumatic. Chest/axilla: Normal chest wall appearance and motion. Nontender with no deformity. No lesions are appreciated. 10:03 Back: No spinal tenderness. No costovertebral tenderness. Full range of motion. Skin: Warm, dry with normal turgor. Normal color with no rashes, no lesions, and no evidence of cellulitis. MS/ Extremity: Pulses equal, no cyanosis. Neurovascular intact. Full, normal range of motion. 10:03 Cardiovascular: Exam negative for acute changes, Rate: normal, Rhythm: regular, Pulses: no pulse deficits are appreciated. 10:03 Respiratory: Exam negative for acute changes, respiratory distress, shortness of breath, Breath sounds: are clear throughout. 10:03 Abdomen/GI: Exam negative for acute changes, Inspection: abdomen appears normal, Palpation: abdomen is soft and non-tender, in all quadrants. 10:03 Neuro: Exam negative for acute changes, Orientation: is normal, Mentation: is normal, Motor: is normal, moves all fours, Sensation: is normal, no obvious gross deficits. Vital Signs: 08:16 BP 114 / 72; Pulse 89; Resp 16 S; Temp 98.2(TE); Pulse Ox 100% on R/A; Weight 58.97 kg jd3 (R); Height 5 ft. 1 in. (154.94 cm) (R); Pain 8/10; 09:30 BP 106 / 66; Pulse 88; Resp 16; Pulse Ox 100% on R/A; kg 10:30 BP 112 / 65; Pulse 80; Resp 16; Pulse Ox 99% on R/A; Pain 7/10; kg 11:10 BP 112 / 65; Pulse 72; Resp 16; Pulse Ox 99% on R/A; Pain 4/10; kg 08:16 Body Mass Index 24.56 (58.97 kg, 154.94 cm) jd3 MDM: 09:31 Patient medically screened. pm1 10:51 Data reviewed: vital signs. Data interpreted: Pulse oximetry: on room air is 99 %. pm1 Interpretation: normal. Counseling: I had a detailed discussion with the patient and/or guardian regarding: the historical points, exam findings, and any diagnostic results supporting the discharge/admit diagnosis, lab results, the need for outpatient follow up, to return to the emergency department if symptoms worsen or persist or if there are any questions or concerns that arise at home. 03/07 08:55 Order name: Urine Dipstick-Ancillary; Complete Time: 09:31 EDMS 03/07 08:59 Order name: Urine --Ancillary (enter results); Complete Time: 09: bd 03/07 09:43 Order name: Urine Microscopic Only pm1 03/07 09:43 Order name: Urine Microscopic Only; Complete Time: 10:24 EDMS 03/07 10:21 Order name: Urine Culture EDMS Administered Medications: 10:00 Drug: Rocephin (cefTRIAXone) 1 grams Route: IM; Site: right ventrogluteal; kg 11:14 Follow up: Response: No adverse reaction kg 10:00 Drug: Zithromax (azithromycin) 1 grams Route: PO; kg 11:14 Follow up: Response: No adverse reaction kg 10:33 Drug: Ibuprofen 600 mg Route: PO; kg 11:10 Follow up: Response: No adverse reaction; Marked relief of symptoms kg Disposition: 15:57 Co-signature as Attending Physician, Saud Pineda MD. rn Disposition: 03/07/21 10:52 Discharged to Home. Impression: Urinary tract infection, site not specified. - Condition is Stable. - Discharge Instructions: Urinary Tract Infection, Adult. - Prescriptions for Macrobid 100 mg Oral Capsule - take 1 capsule by ORAL route every 12 hours for 10 days; 20 capsule. - Medication Reconciliation Form, Thank You Letter, Antibiotic Education, Prescription Opioid Use form. - Follow up: Emergency Department; When: As needed; Reason: Worsening of condition. Follow up: Private Physician; When: 2 - 3 days; Reason: Recheck today's complaints, Continuance of care, Re-evaluation by your physician. - Problem is new. - Symptoms have improved. Signatures: Dispatcher [employer] EDSaud Pena MD MD rn Marinas, Patrick, FREEDOM REAL ESTATE DIRECTOR pm1 Philip Cho RN RN jd3 Greta Aguilar kg Corrections: (The following items were deleted from the chart) 11:25 10:52 03/07/2021 10:52 Discharged to Home. Impression: Urinary tract infection, site kg not specified. Condition is Stable. Forms are Medication Reconciliation Form, Thank You Letter, Antibiotic Education, Prescription Opioid Use. Follow up: Emergency Department; When: As needed; Reason: Worsening of condition. Follow up: Private Physician; When: 2 - 3 days; Reason: Recheck today's complaints, Continuance of care, Re-evaluation by your physician. Problem is new. Symptoms have improved. pm1
--- NOTE | 2021-03-07 10:53 | ER ---
Nurse's Notes [facility] Name: Tierra Wong Age: 25 yrs Sex: Female : 1995 Arrival Date: 03/07/2021 Time: 08:03 Bed 16 Private MD: Diagnosis: Urinary tract infection, site not specified Presentation: 03/07 08:14 Chief complaint: Patient states: "I am having some girl issues. causing pain.". jd3 Coronavirus screen: At this time, the client does not indicate any symptoms associated with coronavirus-19. Ebola Screen: Patient negative for fever greater than or equal to 101.5 degrees Fahrenheit, and additional compatible Ebola Virus Disease symptoms. Initial Sepsis Screen: Does the patient meet any 2 criteria? No. Patient's initial sepsis screen is negative. Does the patient have a suspected source of infection? No. Patient's initial sepsis screen is negative. Risk Assessment: Do you want to hurt yourself or someone else? Patient reports no desire to harm self or others. Onset of symptoms was March 04, 2021. 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 - Social history:: Smoking status: Patient denies any tobacco usage or history of. Screenin:00 Abuse screen: Denies threats or abuse. Nutritional screening: No deficits noted. kg Tuberculosis screening: No symptoms or risk factors identified. Fall Risk None identified. Assessment: 08:57 General: Appears in no apparent distress. Behavior is calm, cooperative, appropriate kg for age, quiet. Pain: Complains of pain in groin Pain currently is 8 out of 10 on a pain scale. at worst was 8 out of 10 on a pain scale. level that patient reports is acceptable is 5 out of 10 on a pain scale. Quality of pain is described as burning. Neuro: No deficits noted. Level of Consciousness is awake, alert, obeys commands, Oriented to person, place, time, situation. Cardiovascular: No deficits noted. Heart tones S1 S2. Respiratory: No deficits noted. Airway is patent Breath sounds are clear bilaterally. GI: No deficits noted. : Reports pain with urination, Pt stated, "It feels like my vagina is going to fall off." urgency, urinary frequency, vaginal itching, since 5 days ago. "I've been having greenish discharge, order, and itching for 5 days.". EENT: No deficits noted. Derm: No deficits noted. Musculoskeletal: No deficits noted. Vital Signs: 08:16 BP 114 / 72; Pulse 89; Resp 16 S; Temp 98.2(TE); Pulse Ox 100% on R/A; Weight 58.97 kg jd3 (R); Height 5 ft. 1 in. (154.94 cm) (R); Pain 8/10; 09:30 BP 106 / 66; Pulse 88; Resp 16; Pulse Ox 100% on R/A; kg 10:30 BP 112 / 65; Pulse 80; Resp 16; Pulse Ox 99% on R/A; Pain 7/10; kg 11:10 BP 112 / 65; Pulse 72; Resp 16; Pulse Ox 99% on R/A; Pain 4/10; kg 08:16 Body Mass Index 24.56 (58.97 kg, 154.94 cm) jd3 ED Course: 08:03 Patient arrived in ED. as 08:15 Triage completed. jd3 08:16 Arm band placed on. jd3 08:40 Greta Aguilar is Primary Nurse. kg 09:00 Patient has correct armband on for positive identification. Placed in gown. Bed in low kg position. Call light in reach. Side rails up X 1. 09:06 Martín Eugene NP is PHCP. pm1 09:06 Saud Pineda MD is Attending Physician. pm1 11:13 No provider procedures requiring assistance completed. Patient did not have IV access kg during this emergency room visit. Administered Medications: 10:00 Drug: Rocephin (cefTRIAXone) 1 grams Route: IM; Site: right ventrogluteal; kg 11:14 Follow up: Response: No adverse reaction kg 10:00 Drug: Zithromax (azithromycin) 1 grams Route: PO; kg 11:14 Follow up: Response: No adverse reaction kg 10:33 Drug: Ibuprofen 600 mg Route: PO; kg 11:10 Follow up: Response: No adverse reaction; Marked relief of symptoms kg Outcome: 10:52 Discharge ordered by . pm1 11:14 Discharged to home ambulatory. kg 11:14 Condition: good 11:14 Discharge instructions given to patient, Instructed on discharge instructions, follow up and referral plans. Demonstrated understanding of instructions, follow-up care, medications, Prescriptions given X 1. 11:25 Patient left the ED. kg Signatures: Susanna Beebe Patrick, NP PUMP ROOM OPERATOR pm1 Philip Cho RN RN jd3 Greta Aguilar kg
[2021-03-07 11:38] VITALS: TEMP 98.2
[2021-03-07 11:48] VITALS: BP 112/65; O2SAT 99
== END 2021-03-07 11:25 | disposition home or self-care (01) ==
LOC: ER 08:02
DX: N39.0 Urinary tract infection, site not specified (principal)
CPT/HCPCS: 81003; 81015; 81025; 87086; 87088; 96372; 99283

== ENCOUNTER 2021-04-22 07:34 | Emergency (ER) | payer OTHER ==
--- OUTSIDE RECORDS SUMMARY | 2021-04-22 07:36 | XMS REPORT | Continuity of Care Document ---
:1995 Author Organization [facility] t Address [address] [place] [address] Care Team Providers Name Role Phone Venkatesh Batista Attending Clinician Problems Condition Condition Condition Status Onset Resolution Last Treating Co mments Source Name Details Category Date Date Treatment Clinician Date Bilateral Bilateral Problem Active [facility] parest[facility] Me moria a a l [facility] ent Clinics Depression Depression Diagnosis Active [facility] screening screening [facility] ent [facility] Well adult Well adult Diagnosis Active [facility] exam exam [facility] Allergies, Adverse Reactions, Alerts This patient has no known allergies or adverse reactions. Medications This patient has no known medications. Procedures This patient has no known procedures. Encounters Start End Encounter Admission Attending Care Care Encounter Source Date/Time Date/Time Type Type Clinicians Facility Department ID 2021-02-23 2021-02-23 Telephone Adi INSUNG [id number] 00:00:00 00:00:00 Chanell Riddle VICE PRESIDENT SAFETY [id number] [facility] [id number] MATERNAL [id number] & CHILD [address] [place] [address] 2019-07-31 2019-07-31 [facility] [id number] 09:00:00 09:00:00 [facility] ent [facility] Results This patient has no known results.
--- NOTE | 2021-04-22 08:30 | EDPHYS ---
Physician Documentation [facility] Name: Tierar Wong Age: 25 yrs Sex: Female : 1995 Arrival Date: 04/22/2021 Time: 07:36 Bed 4 Private MD: ABHISHEK Physician Carlos Pepper HPI: 04/22 08:22 This 25 yrs old Female presents to ER via Ambulatory with complaints of annmarie Headache, Vomiting. 08:22 The patient complains of pain to the forehead, right eye, right ear, left ear and left annmarie eye. The patient describes the headache as aching, a pressure. Onset: The symptoms/episode began/occurred 3 day(s) ago. Associated signs and symptoms: Pertinent positives: nausea, vomiting. Severity of symptoms: At its worst the pain was moderate, in the emergency department the pain is unchanged. Headache History: The patient has had previous headaches and this one is similar to previous episodes. The symptoms are alleviated by nothing. the symptoms are aggravated by nothing. The patient has experienced similar episodes in the past, a few times. 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 - Social history:: Smoking status: Patient denies any tobacco usage or history of. - Family history:: not pertinent. ROS: 08:22 Constitutional: Negative for fever, chills, and weight loss, Eyes: Negative for injury, annmarie pain, redness, and discharge, ENT: Negative for injury, pain, and discharge, Neck: Negative for injury, pain, and swelling, Cardiovascular: Negative for chest pain, palpitations, and edema, Respiratory: Negative for shortness of breath, cough, wheezing, and pleuritic chest pain, Abdomen/GI: Negative for abdominal pain, nausea, vomiting, diarrhea, and constipation, Back: Negative for injury and pain, : Negative for injury, bleeding, discharge, and swelling, MS/Extremity: Negative for injury and deformity, Skin: Negative for injury, rash, and discoloration, Neuro: Negative for headache, weakness, numbness, tingling, and seizure, Psych: Negative for depression, anxiety, suicide ideation, homicidal ideation, and hallucinations, Allergy/Immunology: Negative for hives, rash, and allergies, Endocrine: Negative for neck swelling, polydipsia, polyuria, polyphagia, and marked weight changes, Hematologic/Lymphatic: Negative for swollen nodes, abnormal bleeding, and unusual bruising. Exam: 08:22 Constitutional: This is a well developed, well nourished patient who is awake, alert, annmarie and in no acute distress. Head/Face: Normocephalic, atraumatic. Eyes: Pupils equal round and reactive to light, extra-ocular motions intact. Lids and lashes normal. Conjunctiva and sclera are non-icteric and not injected. Cornea within normal limits. Periorbital areas with no swelling, redness, or edema. ENT: Nares patent. No nasal discharge, no septal abnormalities noted. Tympanic membranes are normal and external auditory canals are clear. Oropharynx with no redness, swelling, or masses, exudates, or evidence of obstruction, uvula midline. Mucous membranes moist. Neck: Trachea midline, no thyromegaly or masses palpated, and no cervical lymphadenopathy. Supple, full range of motion without nuchal rigidity, or vertebral point tenderness. No Meningismus. Chest/axilla: Normal chest wall appearance and motion. Nontender with no deformity. No lesions are appreciated. Cardiovascular: Regular rate and rhythm with a normal S1 and S2. No gallops, murmurs, or rubs. Normal PMI, no JVD. No pulse deficits. Respiratory: Lungs have equal breath sounds bilaterally, clear to auscultation and percussion. No rales, rhonchi or wheezes noted. No increased work of breathing, no retractions or nasal flaring. Abdomen/GI: Soft, non-tender, with normal bowel sounds. No distension or tympany. No guarding or rebound. No evidence of tenderness throughout. Back: No spinal tenderness. No costovertebral tenderness. Full range of motion. Skin: Warm, dry with normal turgor. Normal color with no rashes, no lesions, and no evidence of cellulitis. MS/ Extremity: Pulses equal, no cyanosis. Neurovascular intact. Full, normal range of motion. Neuro: Awake and alert, GCS 15, oriented to person, place, time, and situation. Cranial nerves II-XII grossly intact. Motor strength 5/5 in all extremities. Sensory grossly intact. Cerebellar exam normal. Normal gait. Psych: Awake, alert, with orientation to person, place and time. Behavior, mood, and affect are within normal limits. Vital Signs: 07:54 BP 129 / 87; Pulse 90; Resp 16; Temp 98.1; Pulse Ox 97% on R/A; Weight 58.97 kg; Height iw 5 ft. 1 in. (154.94 cm); Pain 10/10; 08:52 BP 123 / 94; Pulse 73; Resp 17; Pulse Ox 99% ; jl7 07:54 Body Mass Index 24.56 (58.97 kg, 154.94 cm) iw Justyn Coma Score: 08:24 Eye Response: spontaneous(4). Verbal Response: oriented(5). Motor Response: obeys annmarie commands(6). Total: 15. MDM: 07:57 Patient medically screened. annmarie 08:24 Differential diagnosis: hypertensive headache, otitis, sinusitis. Data reviewed: vital annmarie signs, nurses notes. 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 rate is 90 beats/min, Pulse oximetry: on room air is 97 %. Counseling: I had a detailed discussion with the patient and/or guardian regarding: the historical points, exam findings, and any diagnostic results supporting the discharge/admit diagnosis, the need for outpatient follow up, for definitive care, a family practitioner, a neurologist. Administered Medications: 08:37 Drug: Ondansetron 4 mg Route: PO; jl7 08:53 Follow up: Response: No adverse reaction jl7 08:37 Drug: Decadron (dexamethasone) 4 mg Route: PO; jl7 08:53 Follow up: Response: No adverse reaction jl7 08:37 Drug: Augmentin (Amoxicillin-Clavulanate) 875 mg Route: PO; jl7 08:52 Follow up: Response: No adverse reaction jl7 08:38 Drug: TORadol (ketorolac) 60 mg Route: IM; Site: left deltoid; jl7 08:53 Follow up: Response: No adverse reaction jl7 Disposition: 04/22/21 08:29 Discharged to Home. Impression: Acute sinusitis, Tension-type headache. - Condition is Stable. - Discharge Instructions: Tension Headache, Adult, Sinus Headache, Sinusitis, Adult, [id number], Tension Headache, [id number]-[id number]. - Prescriptions for dexamethasone 2 mg Oral tablet - take 1 tablet by ORAL route 2 times per day; 10 tablet. Augmentin 875- 125 mg Oral Tablet - take 1 tablet by ORAL route every 12 hours for 10 days; 20 tablet. Zofran 4 mg Oral Tablet - take 1 tablet by ORAL route every 12 hours As needed; 14 tablet. Sadaf- D 12 Hour 60-120 mg Oral Tablet Sustained Release 12 hr - take 1 tablet by ORAL route every 12 hours As needed; 20 tablet. Ibuprofen 600 mg Oral Tablet - take 1 tablet by ORAL route every 6 hours As needed take with food; 20 tablet. - Medication Reconciliation Form, Thank You Letter, Antibiotic Education, Prescription Opioid Use, Work release form form. - Follow up: Private Physician; When: 2 - 3 days; Reason: Recheck today's complaints, Continuance of care, Re-evaluation by your physician. - Problem is new. - Symptoms have improved. Signatures: Carlos Pepper MD MD cha Williams, Irene RN RN iw Herminia Marcos RN RN jl7 Corrections: (The following items were deleted from the chart) 08:54 08:29 04/22/2021 08:29 Discharged to Home. Impression: Acute sinusitis; Tension-type jl7 headache. Condition is Stable. Forms are Medication Reconciliation Form, Thank You Letter, Antibiotic Education, Prescription Opioid Use. Follow up: Private Physician; When: 2 - 3 days; Reason: Recheck today's complaints, Continuance of care, Re-evaluation by your physician. Problem is new. Symptoms have improved. annmarie
--- NOTE | 2021-04-22 08:30 | ER ---
Nurse's Notes [facility] Name: Tierra Wong Age: 25 yrs Sex: Female : 1995 Arrival Date: 04/22/2021 Time: 07:36 Bed 4 Private MD: Diagnosis: Acute sinusitis;Tension-type headache Presentation: 04/22 07:54 Chief complaint: Patient states: has had a headache X 24 hours, started out with iw sneezing, took mucinex , now vomited though the night, has pain to forehead and face, no fever. Coronavirus screen: Client presents with at least one sign or symptom that may indicate coronavirus-19. Ebola Screen: Patient negative for fever greater than or equal to 101.5 degrees Fahrenheit, and additional compatible Ebola Virus Disease symptoms Patient denies exposure to infectious person. Patient denies travel to an Ebola-affected area in the 21 days before illness onset. No symptoms or risks identified at this time. Initial Sepsis Screen: Does the patient meet any 2 criteria? No. Patient's initial sepsis screen is negative. Does the patient have a suspected source of infection? No. Patient's initial sepsis screen is negative. Risk Assessment: Do you want to hurt yourself or someone else? Patient reports no desire to harm self or others. Onset of symptoms was April 21, 2021. 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 - Social history:: Smoking status: Patient denies any tobacco usage or history of. - Family history:: not pertinent. Screenin:20 Abuse screen: Denies threats or abuse. Denies injuries from another. Nutritional jl7 screening: No deficits noted. Tuberculosis screening: No symptoms or risk factors identified. Fall Risk None identified. Assessment: 08:20 General: Appears in no apparent distress. uncomfortable, Behavior is calm, cooperative, jl7 appropriate for age. Pain: Complains of pain in LATIF Pain currently is 10 out of 10 on a pain scale. Neuro: Level of Consciousness is awake, alert, obeys commands, Oriented to person, place, time, situation. Cardiovascular: Patient's skin is warm and dry. Respiratory: Reports nasal congestion/sinus pressure Airway is patent Respiratory effort is even, unlabored, Respiratory pattern is regular, symmetrical. Derm: Skin is pink, warm \T\ dry. Vital Signs: 07:54 BP 129 / 87; Pulse 90; Resp 16; Temp 98.1; Pulse Ox 97% on R/A; Weight 58.97 kg; Height iw 5 ft. 1 in. (154.94 cm); Pain 10/10; 08:52 BP 123 / 94; Pulse 73; Resp 17; Pulse Ox 99% ; jl7 07:54 Body Mass Index 24.56 (58.97 kg, 154.94 cm) iw Justyn Coma Score: 08:24 Eye Response: spontaneous(4). Verbal Response: oriented(5). Motor Response: obeys annmarie commands(6). Total: 15. ED Course: 07:36 Patient arrived in ED. am2 07:56 Triage completed. iw 07:57 Carlos Pepper MD is Attending Physician. annmarie 07:57 Arm band placed on. iw 08:05 Herminia Marcos RN is Primary Nurse. jl7 08:20 Patient has correct armband on for positive identification. Bed in low position. Call jl7 light in reach. Side rails up X 1. 08:53 No provider procedures requiring assistance completed. Patient did not have IV access jl7 during this emergency room visit. Administered Medications: 08:37 Drug: Ondansetron 4 mg Route: PO; jl7 08:53 Follow up: Response: No adverse reaction jl7 08:37 Drug: Decadron (dexamethasone) 4 mg Route: PO; jl7 08:53 Follow up: Response: No adverse reaction jl7 08:37 Drug: Augmentin (Amoxicillin-Clavulanate) 875 mg Route: PO; jl7 08:52 Follow up: Response: No adverse reaction jl7 08:38 Drug: TORadol (ketorolac) 60 mg Route: IM; Site: left deltoid; jl7 08:53 Follow up: Response: No adverse reaction jl7 Outcome: 08:29 Discharge ordered by . annmarie 08:53 Discharged to home ambulatory. jl7 08:53 Condition: stable 08:53 Discharge instructions given to patient, Instructed on discharge instructions, follow up and referral plans. medication usage, Demonstrated understanding of instructions, follow-up care, medications, Prescriptions given X 5 08:54 Patient left the ED. jl7 Signatures: Carlos Pepper MD MD cha Williams, Irene, RN ARELI iw Herminia Marcos RN RN jl7 Iwona Wright
[2021-04-22] MEDS ORDERED: AMOX/K CLAV 875 MG TAB ONE (08:46)
[2021-04-22] MEDS ORDERED: KETOROLAC 30 MG/ML INJ ONE (08:47)
[2021-04-22] MEDS ORDERED: dexAMETHasone 4 MG TAB ONE (08:47)
[2021-04-22] MEDS ORDERED: ONDANSETRON 4 MG (ODT) TAB ONE (08:47)
[2021-04-22 09:02] VITALS: TEMP 98.1
[2021-04-22 09:08] VITALS: BP 123/94; O2SAT 99
== END 2021-04-22 08:54 | disposition home or self-care (01) ==
LOC: ER 07:34
DX: J01.90 Acute sinusitis, unspecified (principal)
CPT/HCPCS: J8540

== ENCOUNTER 2021-08-31 17:49 | Emergency (ER) | payer OTHER ==
[2021-08-31] MEDS ORDERED: IBUPROFEN 400 MG TAB ONE (18:45)
--- NOTE | 2021-08-31 18:48 | RAD REPORT ---
EXAM DESCRIPTION: RAD - Ankle Right 3 View - 08/31/2021 6:39 pm CLINICAL HISTORY: PAIN COMPARISON: No comparisons FINDINGS: No acute fracture. No malalignment. No significant focal degenerative changes. IMPRESSION: No acute osseous abnormality involving the right ankle.
--- NOTE | 2021-08-31 18:48 | RAD REPORT ---
EXAM DESCRIPTION: RAD - Foot Right 3 View - 08/31/2021 6:39 pm CLINICAL HISTORY: injury;Pain COMPARISON: No comparisons FINDINGS: No acute fracture. No malalignment. No significant focal degenerative changes. IMPRESSION: No acute osseous abnormality involving the right foot.
--- NOTE | 2021-08-31 18:56 | ER ---
Nurse's Notes [facility] Name: Tierra Wong Age: 25 yrs Sex: Female : 1995 Arrival Date: 08/31/2021 Time: 17:51 Bed 11 Private MD: Diagnosis: Sprain of unspecified ligament of right ankle Presentation: 08/31 18:01 Chief complaint: Patient states: I was at work today and I fell off of a lift that was ld1 2-3 feet in the air, landing on my right ankle/foot. Coronavirus screen: At this time, the client does not indicate any symptoms associated with coronavirus-19. Ebola Screen: No symptoms or risks identified at this time. Initial Sepsis Screen: Does the patient meet any 2 criteria? No. Patient's initial sepsis screen is negative. Does the patient have a suspected source of infection? No. Patient's initial sepsis screen is negative. Risk Assessment: Do you want to hurt yourself or someone else? Patient reports no desire to harm self or others. Onset of symptoms was August 31, 2021. 18:01 Method Of Arrival: Ambulatory ld1 18:01 Acuity: [place] 4 ld1 Triage Assessment: 18:05 General: Appears in no apparent distress. comfortable, Behavior is calm, cooperative, ld1 appropriate for age. Pain: Complains of pain in right foot, right ankle, lateral aspect of right foot, right Achilles, right heel, medial aspect of right foot, anterior aspect of right ankle and dorsum of right foot Pain does not radiate. Pain currently is 10 out of 10 on a pain scale. Quality of pain is described as throbbing, Pain began 2 hours ago. Is continuous. EENT: No signs and/or symptoms were reported regarding the EENT system. Neuro: Level of Consciousness is awake, alert, obeys commands, Oriented to person, place, time, situation, Appropriate for age. Cardiovascular: Capillary refill < 3 seconds Patient's skin is warm and dry. Respiratory: Airway is patent Respiratory effort is even, unlabored, Respiratory pattern is regular, symmetrical. GI: Abdomen is flat, non-distended. : No signs and/or symptoms were reported regarding the genitourinary system. Derm: No signs and/or symptoms reported regarding the dermatologic system. Musculoskeletal: Range of motion: limited in right ankle Reports pain in right foot, anterior aspect of right ankle and dorsum of right foot. Injury Description: patient fell off of lift at work and injured right ankle. 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 - Social history:: Smoking status: Patient denies any tobacco usage or history of. Patient/guardian denies using alcohol. - Family history:: not pertinent. - Hospitalizations: : No recent hospitalization is reported. Screenin:08 Abuse screen: Denies threats or abuse. Denies injuries from another. Nutritional ld1 screening: No deficits noted. Tuberculosis screening: No symptoms or risk factors identified. Fall Risk None identified. Assessment: 18:08 Reassessment: See triage assessment. ld1 Vital Signs: 18:01 BP 131 / 82; Pulse 78; Resp 18; Temp 98.4(O); Pulse Ox 99% on R/A; Weight 65.77 kg; ld1 Height 5 ft. 1 in. (154.94 cm); Pain 10/10; 18:01 Body Mass Index 27.40 (65.77 kg, 154.94 cm) ld1 ED Course: 17:51 Patient arrived in ED. as 17:57 Saud Pineda MD is Attending Physician. rn 18:01 Nisha Irvin RN is Primary Nurse. ld1 18:05 Triage completed. ld1 18:05 Arm band placed on right wrist. ld1 18:08 Patient has correct armband on for positive identification. Bed in low position. Call ld1 light in reach. Side rails up X2. Pulse ox on. NIBP on. Door closed. Noise minimized. Warm blanket given. 18:08 No provider procedures requiring assistance completed. ld1 18:39 XRAY Ankle RIGHT 3 view In Process Unspecified. EDMS 18:40 XRAY Foot RIGHT 3 View In Process Unspecified. EDMS 19:09 Patient did not have IV access during this emergency room visit. ld1 Administered Medications: 18:48 Drug: Motrin (ibuprofen) 800 mg Route: PO; ld1 18:48 Follow up: Response: No adverse reaction ld1 Outcome: 18:55 Discharge ordered by . rn 19:09 Discharged to home ambulatory. ld1 19:09 Condition: stable 19:09 Discharge instructions given to patient, Instructed on discharge instructions, follow up and referral plans. Demonstrated understanding of instructions, follow-up care. 19:09 Patient left the ED. ld1 Signatures: Dispatcher [employer] Susanna Zendejas Roman, MD MD rn Dibbern, Lauren, RN RN ld1
--- NOTE | 2021-08-31 18:56 | EDPHYS ---
Physician Documentation [facility] Name: Tierra Wong Age: 25 yrs Sex: Female : 1995 Arrival Date: 08/31/2021 Time: 17:51 Bed 11 Private MD: ED Physician Saud Pineda HPI: 08/31 18:01 This 25 yrs old Female presents to ER via Unassigned with complaints of Foot rn Injury. 18:01 The patient presents with an injury, pain. 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 The complaints affect the right foot. Context: The problem was sustained at work, resulted from the patient falling, a mis-step by the patient, Mechanism of Injury: Inversion the patient can fully bear weight, the patient is able to ambulate. Onset: The symptoms/episode began/occurred just prior to arrival. Modifying factors: The symptoms are alleviated by nothing, the symptoms are aggravated by weight bearing, movement. Associated signs and symptoms: Pertinent negatives: warmth, weakness. Severity of symptoms: At their worst the symptoms were moderate, in the emergency department the symptoms have improved. The patient has not experienced similar symptoms in the past. The patient has not recently seen a physician. 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 - Social history:: Smoking status: Patient denies any tobacco usage or history of. Patient/guardian denies using alcohol. - Family history:: not pertinent. - Hospitalizations: : No recent hospitalization is reported. ROS: 18:01 MS/extremity: Positive for decreased range of motion, pain, swelling, Negative for rn laceration, paresthesias, puncture, rash, warmth. Exam: 18:01 Constitutional: This is a well developed, well nourished patient who is awake, alert, registry rn to room with mild limp on right foot MS/ Extremity: Pulses equal, no cyanosis. Neurovascular intact. Full, normal range of motion. Equal circumference. Mild tenderness medial right ankle and right midfoot on the dorsal surface. No open wounds. No cyanosis. No gross deformity. Vital Signs: 18:01 BP 131 / 82; Pulse 78; Resp 18; Temp 98.4(O); Pulse Ox 99% on R/A; Weight 65.77 kg; ld1 Height 5 ft. 1 in. (154.94 cm); Pain 10/10; 18:01 Body Mass Index 27.40 (65.77 kg, 154.94 cm) ld1 MDM: 17:57 Patient medically screened. rn 18:55 Differential diagnosis: fracture, sprain. Data reviewed: vital signs, nurses notes, rn radiologic studies, plain films, and as a result, I will discharge patient. Test interpretation: by ED physician or midlevel provider: plain radiologic studies, X-ray right foot and ankle negative for fracture or dislocation. Counseling: I had a detailed discussion with the patient and/or guardian regarding: the historical points, exam findings, and any diagnostic results supporting the discharge/admit diagnosis, radiology results, the need for outpatient follow up, to return to the emergency department if symptoms worsen or persist or if there are any questions or concerns that arise at home. Special discussion: I discussed with the patient/guardian in detail that at this point there is no indication for admission to the hospital. It is understood, however, that if the symptoms persist or worsen the patient needs to return immediately for re-evaluation. 08/31 18:00 Order name: XRAY Ankle RIGHT 3 view; Complete Time: 18:55 rn 08/31 18:00 Order name: XRAY Foot RIGHT 3 View; Complete Time: 18:55 rn Administered Medications: 18:48 Drug: Motrin (ibuprofen) 800 mg Route: PO; ld1 18:48 Follow up: Response: No adverse reaction ld1 Disposition Summary: 08/31/21 18:55 Discharge Ordered Location: Home rn Problem: new rn Symptoms: have improved rn Condition: Stable rn Diagnosis - Sprain of unspecified ligament of right ankle rn Followup: rn - With: Private Physician - When: As needed - Reason: Recheck today's complaints, Re-evaluation by your physician Discharge Instructions: - Discharge Summary Sheet rn - Ankle Sprain rn Forms: - Medication Reconciliation Form rn - Thank You Letter rn - Antibiotic rn infusion - Prescription Opioid Use rn - Work release form ld1 Signatures: Dispatcher [employer] EDMS Pineda, Saud, MD MD rn Nisha Irvin RN RN ld1
[2021-08-31 20:31] VITALS: BP 131/82; TEMP 98.4; O2SAT 99
--- OUTSIDE RECORDS SUMMARY | 2021-09-10 10:01 | XMS REPORT | Continuity of Care Document ---
:1995 Author Organization [facility] t Address [address] [place] [address] Care Team Providers Name Role Phone Venkatesh ROSALES Attending Clinician Unavailable Venkatesh Batista Attending Clinician Marti SWARTZ Attending Clinician Unavailable Catherine WATSON Attending Clinician Unavailable Payers Payer Name Policy Type Policy Number Effective Date Expiration Date [place] [employer] [id number] 2019 HEALTH 00:00:00 Problems Condition Condition Condition Status Onset Resolution Last Treating Co mments Source Name Details Category Date Date Treatment Clinician Date Bilateral Bilateral Problem [facility] Depression Depression Diagnosis Active [facility] screening screening [facility] Well adult Well adult Diagnosis Active [facility] exam exam [facility] Clinics Allergies, Adverse Reactions, Alerts Allergy Allergy Status Severity Reaction(s) Onset Inactive Treating Comm ents Source Name Type Date Date Clinician NO KNOWN Drug Active [facility] ALLERGIE Class [facility] Medications This patient has no known medications. Procedures This patient has no known procedures. Encounters Start End Encounter Admission Attending Care Care Encounter Source Date/Time Date/Time Type Type Clinicians Facility Department ID 2021-03-07 2021-03-07 Outpatient R CONNIE [facility] [id number] Univers 10:45:00 10:45:00 CHANELL [id number] [facility] 2021-03-07 2021-03-07 Outpatient R CONNIE [facility] [id number] Univers 10:45:00 10:45:00 CHANELL [facility] 2021-02-23 2021-02-23 Telephone Akinsipe, [facility] [id number] 00:00:00 00:00:00 Chanell Riddle [employer] [id number] [facility] [id number] MATERNAL [id number] & CHILD [address] [place] [address] 2021-02-21 2021-02-21 Outpatient R AKINSIPE, [facility] [id number] Univers 09:00:00 09:00:00 CHANELL [id number] ity o f [facility] 2021-02-21 2021-02-21 Outpatient R AKINSIPE, [facility] [id number] Univers 09:00:00 09:00:00 CHANELL conkliny o f [facility] 2020-10-28 2020-10-28 Outpatient AKINSIPE, [facility] [id number] Univers 11:00:00 11:00:00 CHANELL [id number] kateriny o f [facility] 2020-10-28 2020-10-28 Outpatient R AKINSIPE, [facility] [id number] Univers 11:00:00 11:00:00 CHANELL conkliny o f [facility] 2020-10-18 2020-10-18 Outpatient R [facility] [id number] Univers 14:00:00 14:00:[id number] [facility] 2020-10-18 2020-10-18 Outpatient R SHERIDAN, [facility] [id number] Univers 14:00:00 14:00:00 JONATHON starks [facility] 2020-10-14 2020-10-14 Outpatient R AKINSIPE, [facility] [id number] Univers 15:45:00 15:45:00 CHANELL [id number] ity o f [facility] 2020-10-14 2020-10-14 Outpatient R AKINSIPE, [facility] [id number] Univers 15:45:00 15:45:00 CHANELL conkliny o f [facility] 2020-10-05 2020-10-05 Outpatient R SHERIDAN, [facility] [id number] Univers 07:45:00 07:45:[id number] [facility] 2020-10-01 2020-10-01 Outpatient R AKINHEMANT, [facility] [id number] Univers 14:15:00 14:15:00 CHANELL ity o f [facility] 2020-10-01 2020-10-01 Outpatient R AKINHEMANT, [facility] [id number] Univers 14:15:00 14:15:00 CHANELL ity o f [facility] 2020-08-13 2020-08-13 Outpatient R [facility] [id number] Univers 13:30:00 13:30:00 [id number] ity [facility] 2020-08-13 2020-08-13 Outpatient R [facility] [id number] Univers 13:30:00 13:30:00 ity [facility] 2020-08-11 2020-08-11 Outpatient R [facility] [id number] Univers 10:00:00 10:00:00 [id number] ity [facility] 2020-08-11 2020-08-11 Outpatient R [facility] [id number] Univers 10:00:00 10:00:00 ity [facility] 2020-06-29 2020-06-29 Outpatient R [facility] [id number] Univers 08:15:[facility] 2020-06-15 Outpatient R SHIRLEY, [facility] [id number] Univers 14:30:00 14:30:00 AMADO [id number] ity o f [facility] 2020-06-15 2020-06-15 [id number] Univers 14:30:00 14:30:00 AMADO conkliny o f [facility] 2020-05-25 2020-05-25 [facility] [id number] Univers 10:15:00 10:15:00 JONATHON [id number] ity [facility] 2020-05-25 2020-05-25 [facility] [id number] Univers 10:15:00 10:15:[address] [facility] 2020-05-11 2020-05-11 Outpatient R [facility] [id number] Univers 14:30:00 14:30:00 [id number] ity [facility] 2020-05-11 2020-05-11 Outpatient R SHERIDAN [facility] [id number] Univers 14:30:00 14:30:00 JONATHON ity [facility] 2020-05-10 2020-05-10 Outpatient R SHERIDAN [facility] [id number] Univers 08:45:00 08:45:00 JONATHON [id number] ity [facility] 2020-05-10 2020-05-10 Outpatient R SHERIDAN [facility] [id number] Univers 08:45:00 08:45:00 JONATHON itsusan [facility] 2020-04-09 2020-04-09 Outpatient [facility] [id number] Univers 08:15:00 08:15:[facility] [id number] 2020-03-29 2020-03-29 Outpatient R [facility] [id number] Univers 08:00:00 08:00:00 ity [facility] 2020-03-29 2020-03-29 Outpatient R [facility] [id number] Univers 08:00:00 08:00:00 ity [facility] 2020-03-24 2020-03-24 Outpatient R SHIRLEY [facility] [id number] Univers 15:30:00 15:30:00 AMADO [id number] ity o f [facility] 2020-03-24 2020-03-24 Outpatient R SHIRLEY [facility] [id number] Univers 15:30:00 15:30:00 AMADO ity o f [facility] 2020-01-28 2020-01-28 Outpatient R AKINSIPE, [facility] [id number] Univers 15:45:00 15:45:00 CHANELL ity o f [facility] 2020-01-28 2020-01-28 Outpatient R AKINSIPE, [facility] [id number] Univers 15:45:00 15:45:00 CHANELL ity o f [facility] 2019-12-31 2019-12-31 [facility] [id number] Univers 15:45:00 15:45:[address] [facility] 2019-12-26 2019-12-26 Outpatient Catherine SWARTZ [facility] [id number] Univers 10:30:00 10:30:[id number] [facility] 2019-07-31 2019-07-31 Outpatient Oleg Mitchell [id number] [facility] 09:00:00 09:00:00 [facility] Medicine Outpati ent Clinics Results This patient has no known results.
== END 2021-08-31 19:09 | disposition home or self-care (01) ==
LOC: ER 17:49
DX: S93.401A Sprain of unspecified ligament of right ankle, initial encounter (principal); W19.XXXA Unspecified fall, initial encounter; Y92.89 Other specified places as the place of occurrence of the external cause; Y99.8 Other external cause status
CPT/HCPCS: 99283

== ENCOUNTER 2023-04-28 07:44 | Emergency (ER) | payer OTHER ==
--- OUTSIDE RECORDS SUMMARY | 2023-04-28 07:47 | XMS REPORT | Continuity of Care Document ---
:1995 Author Organization [facility] t Address [address] [facility] [address] [place] [id number] Care Team Providers Name Role Phone LATHA KELLOGG Primary Care Physician Unavailable Lauren Santoro Attending Clinician Unavailable EDU VASQUEZ Attending Clinician Unavailable Edu Oshea Attending Clinician Unknown, Attending Attending Clinician Unavailable SHANICE LOPEZ Attending Clinician Unavailable Shanice Lopez PA-C Attending Clinician LATHA KELLOGG Attending Clinician Unavailable Latha Kellogg CNM Attending Clinician Doctor Unassigned, [place] Attending Clinician Unavailable Lab, Ang - Db Attending Clinician Unavailable ARACELIS WATSON Attending Clinician Unavailable Aracelis Hayward Attending Clinician AJITH MCKEON Attending Clinician Unavailable EDUARDO KWON Attending Clinician Unavailable CHANELL ROSALES Attending Clinician Unavailable Chanell Batista Attending Clinician [phone] JONATHON SWARTZ Attending Clinician Unavailable Payers Payer Name Policy Type Policy Number Effective Date Expiration Date Samia FLOREZ STAR [id number] 2023 00:00:00 Problems Condition Condition Condition Status Onset Resolution Last Treating Co mments Source Name Details Category Date Date Treatment Clinician Date Current Current Disease Active Univers every day every day 4-30 ity of vaping vaping 00:00: [place] 00 [facility] Overweight Overweight Disease Active U nivers (BMI (BMI 4-30 ity of 25.0-29.9) 25.0-29.9) [place] [facility] Dysuria Dysuria Disease Active Univers 6-09 ity of 00:: [place] [address] Medical [place] Screening Screening Disease Active 2019-10 Uni vers examinatio examinatio 2-17 it y of n for STD n for STD [place] ([place]ually (sexually 00 Medi rupali transmitte transmitte Br anch d disease) d disease) Nexplanon Nexplanon Disease Active Uni vers in place in place 05-25 ity of 00:: [place] [facility] 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 2-12 ity of screening screening [place] [facility] [place] BMI BMI Disease Active 2019- Univers 24.0-24.9, 24.0-24.9, 2-12 it y of adult adult 00:00: [place] [facility] Tobacco Tobacco Disease Active Univers use use 2-12 ity of disorder disorder 00:00: [place] [facility] Vaginal Vaginal Disease Active Univers discharge discharge 2-12 ity of 00:: [address] Bilateral Bilateral Problem Active Com mon leg leg Spirit paresthesi paresthesi - [facility] a a [facility] Depression Depression Diagnosis Active Common screening screening Spir [facility] Well adult Well adult Diagnosis Active Common exam exam [facility] Allergies, Adverse Reactions, Alerts Allergy Allergy Status Severity Reaction(s) Onset Inactive Treating Comm ents Source Name Type Date Date Clinician NO KNOWN Drug Active Univers ALLERGIE Class ity of S [facility] Social History Social Habit Start Date Stop Date Quantity Comments Source History of 2019-07-10 Cigarette Smoker Universi ty of tobacco use 00:00:00 [place] [facility] History SDOH University o f Alcohol Frequency [facility] edical Branch History SDOH University o f Alcohol Std [place] [facility] Drinks Branch History SDOH University o f Alcohol Binge [place] [facility] Alcohol intake 2023-04-25 2023-04-25 Current drinker Unive rsity of 00:00:00 00:00:00 of alcohol [place] [facility] (finding) Branch Exposure to 2023-03-06 2023-03-16 Not sure [facility] SARS-CoV-2 00:00:00 09:43:00 [facility] (event) Branch Tobacco use and 2023-02-23 2023-02-23 Smokeless tobacco Un iversity of exposure 00:00:00 00:00:[address] [facility] Tobacco Comment 2022-05-17 2022-05-17 vapes Universit y of 00:00:00 00:00:00 [facility] Alcohol Comment 2019-12-10 2019-12-10 occasional Universit y of 00:00:00 00:00:00 [facility] Sex Assigned At [birth year] Universit y of 00:00:00 00:00:00 [facility] Smoking Status Start Date Stop Date Source Ex-smoker 2023-02-23 00:00:00 2023-02-23 University o f [place] 00:00:00 [facility] Occasional tobacco 2022-05-17 00:00:00 Universit y of [place] smoker [facility] Medications Ordered Filled Start Stop Current Ordering Indication Dosage Frequency Signature Comments Components Source Medication Medication Date Date Medication? Clinician (SIG) Name Name jamie Yes [id number] 5mL Take 5 mL Univers mine-pseudo 5-19 by mouth 3 it y of ephedrine-D 00:00: (three) [place] M (BROMFED 00 times Medical DM) 2-30-10 daily as Bran ch mg/5 mL needed for syrup Cold symptoms. cetirizine Yes [id number] 10mg Take 1 Univers 10 mg 5-19 tablet by ity of tablet 00:00: mouth in [place] the Medical morning. Branch bromphenira Yes [id number] 5mL Take 5 mL Univers mine-pseudo 5-19 by mouth 3 it y of ephedrine-D 00:00: (three) [place] M (BROMFED 00 times Medical DM) 2-30-10 daily as Bran ch mg/5 mL needed for syrup Cold symptoms. cetirizine Yes [id number] 10mg Take 1 Univers 10 mg 5-19 tablet by ity of tablet 00:00: mouth in [place] 00 the Medical morning. Branch bromphenira Yes [id number] 5mL Take 5 mL Univers mine-pseudo 5-19 by mouth 3 it y of ephedrine-D 00:00: (three) [place] M (BROMFED 00 times Medical DM) 2-30-10 daily as Bran ch mg/5 mL needed for syrup Cold symptoms. cetirizine Yes [id number] 10mg Take 1 Univers 10 mg 5-19 tablet by ity of tablet 00:00: mouth in [place] 00 the Medical morning. Branch Nitrofurant Yes [id number] 100mg Take 1 Univers oin&Nit. 4-26 capsule by ity o f Macrocryst 00:00: mouth in [facility] as (MACROBID) 00 the Medical 100 mg morning Branch capsule and 1 capsule in the evening. Nitrofurant Yes [id number] 100mg Take 1 Univers oin&Nit. 4-26 capsule by ity o f Macrocryst 00:00: mouth in [facility] as (MACROBID) 00 the Medical 100 mg morning Branch capsule and 1 capsule in the evening. Nitrofurant Yes [id number] 100mg Take 1 Univers oin&Nit. 4-26 capsule by ity o f Macrocryst 00:00: mouth in [facility] as (MACROBID) 00 the Medical 100 mg morning Branch capsule and 1 capsule in the evening. Nitrofurant 2022- No [id number] 100mg Take 1 Univers oin&Nit. 4-26 04-30 capsule by ity of Mac[place] 00:00: 00:00 [place] (MACROBID[place] :00 the Medical 100 mg morning Branch capsule and 1 capsule in the evening. Nitrofurant 2022- No [id number] 100mg Take 1 Univers oin&Nit. 4-26 04-30 capsule by ity of Macrocryst 00:00: 00:00 [place] (MACROBID) 00 :00 the Medical 100 mg morning Branch capsule and 1 capsule in the evening. Nitrofurant 2021- No [id number] 100mg Take 1 Univers oin&Nit. 6-09 06-20 capsule by ity of Macrocryst 00:00: 04:59 mouth 2 [place] (MACROBID) 00 :00 (two) Medical 100 mg times Branch capsule daily for 10 days. metroNIDAZO Yes [id number] 500mg Take 1 Univers LE 500 mg 4-28 tablet by ity o f tablet 00:00: mouth 2 (two) Medical times Branch daily. metroNIDAZO Yes [id number] 500mg Take 1 Univers LE 500 mg 4-28 tablet by ity o f tablet 00:00: mouth 2 00 (two) Medical times Branch daily. metroNIDAZO Yes [id number] 500mg Take 1 Univers LE 500 mg 4-28 tablet by ity o f tablet 00:00: mouth 2 00 (two) Medical times Branch daily. metroNIDAZO Yes [id number] 500mg Take 1 Univers LE 500 mg 4-28 tablet by ity o f tablet 00:00: mouth (two) Medical times Branch daily. metroNIDAZO Yes [id number] 500mg Take 1 Univers LE 500 mg 4-28 tablet by ity o f tablet 00:00: mouth (two) Medical times Branch daily. metroNIDAZO Yes [id number] 500mg Take 1 Univers LE 500 mg 4-28 tablet by ity o f tablet 00:00: mouth (two) Medical times Branch daily. metroNIDAZO 2022- No [id number] 500mg Take 1 Univers LE 500 mg 4-28 04-30 tablet by ity of tablet 00:00: 00:00 mouth 2 [place] 00 :00 (two) Medical times Branch daily. metroNIDAZO 3- No [id number] 500mg Take 1 Univers LE 500 mg 4-28 04-30 tablet by ity of tablet 00:00: 00:00 mouth 2 [place] 00 :00 (two) Medical times Branch daily. metroNIDAZO 2019-10 Yes [id number] 500mg Take 1 Univers LE 500 mg 2-21 tablet by ity o f tablet 00:00: mouth [place] (two) Medical times Branch daily. metroNIDAZO 2019-10 Yes [id number] 500mg Take 1 Univers LE 500 mg 2-21 tablet by ity o f tablet 00:00: mouth 2 (two) Medical times Branch daily. metroNIDAZO 2019-10 Yes [id number] 500mg Take 1 Univers LE 500 mg 2-21 tablet by ity o f tablet 00:00: mouth 2 [place] 00 (two) Medical times Branch daily. metroNIDAZO 2019-10 Yes [id number] 500mg Take 1 Univers LE 500 mg 2-21 tablet by ity o f tablet 00:00: mouth 2 [place] 00 (two) Medical times Branch daily. metroNIDAZO 2019-10 Yes [id number] 500mg Take 1 Univers LE 500 mg 2-21 tablet by ity o f tablet 00:00: mouth 2 [place] 00 (two) Medical times Branch daily. metroNIDAZO 2019-10 Yes [id number] 500mg Take 1 Univers LE 500 mg 2-21 tablet by ity o f tablet 00:00: mouth 2 [place] 00 (two) Medical times Branch daily. metroNIDAZO 2019-10- No [id number] 500mg Take 1 Univers LE 500 mg 2-21 04-30 tablet by ity of tablet 00:00: 00:00 mouth 2 [place] 00 :00 (two) Medical times Branch daily. metroNIDAZO 2019-10- No [id number] 500mg Take 1 Univers LE 500 mg 2-21 04-30 tablet by ity of tablet 00:00: 00:00 mouth 2 [place] 00 :00 (two) Medical times [place] daily. Vital Signs Vital Name Observation Time Observation Value Comments Source Systolic blood 2023-04-25 18:59:00 115 mm[Hg] [facility] Diastolic blood 2023-04-25 18:59:00 79 mm[Hg] [facility] Heart rate 2023-04-25 18:59:00 111 /min [facility] Body temperature 2023-04-25 18:59:00 37.06 Christine [facility] Respiratory rate 2023-04-25 18:59:00 18 /min [facility] Body height 2023-04-25 18:59:00 157.5 cm [facility] Body weight 2023-04-25 18:59:00 63.413 kg [facility] BMI 2023-04-25 18:59:00 25.57 kg/m2 [facility] Oxygen saturation in 2023-04-25 18:59:00 100 /min [facility] blood by [facility] Pulse oximetry Branch Systolic blood 2023-03-16 17:18:00 115 mm[Hg] Univer sity of pressure [place] [facility] Diastolic blood 2023-03-16 17:18:00 77 mm[Hg] Unive rsity of pressure [place] [facility] Heart rate 2023-03-16 17:18:00 76 /min Universi ty of [place] [facility] Body temperature 2023-03-16 17:18:00 36.89 Christine Univ ersity of [place] [facility] Respiratory rate 2023-03-16 17:18:00 16 /min Univ ersity of [place] [facility] Body weight 2023-03-16 17:18:00 65.182 kg Universi ty of [place] [facility] BMI 2023-03-16 17:18:00 26.28 kg/m2 Universi ty of [place] [facility] Oxygen saturation in 2023-03-16 17:18:00 96 /min University of Arterial blood by [facility] Pulse oximetry Branch Systolic blood 2023-02-23 15:24:00 128 mm[Hg] Univer sity of pressure [place] [facility] Diastolic blood 2023-02-23 15:24:00 83 mm[Hg] Unive rsity of pressure [place] [facility] Heart rate 2023-02-23 15:24:00 80 /min Universi ty of [place] [facility] Body temperature 2023-02-23 15:23:00 36.61 Christine Univ ersity of [place] [facility] Respiratory rate 2023-02-23 15:23:00 18 /min Univ ersity of [place] [facility] Body height 2023-02-23 15:23:00 157.5 cm Universi ty of [place] [facility] Body weight 2023-02-23 15:23:00 64.638 kg Universi ty of [place] [facility] BMI 2023-02-23 15:23:00 26.06 kg/m2 Universi ty of [place] [facility] Systolic blood 2023-02-21 18:38:00 110 mm[Hg] Univer sity of pressure [place] [facility] Diastolic blood 2023-02-21 18:38:00 65 mm[Hg] Unive rsity of pressure [place] [facility] Heart rate 2023-02-21 18:38:00 70 /min Universi ty of [place] [facility] Body temperature 2023-02-21 18:38:00 37 Christine Univ ersity of [place] [facility] Respiratory rate 2023-02-21 18:38:00 16 /min [facility] Body height 2023-02-21 18:38:00 157.[address] [facility] Body weight 2023-02-21 18:38:00 65.817 kg Universi ty [place] [facility] BMI 2023-02-21 18:38:00 26.54 kg/m2 [facility] Oxygen saturation in 2023-02-21 18:38:00 97 /min [facility] Arterial blood by [facility] Pulse oximetry Branch Systolic blood 2022-04-06 13:49:00 112 mm[Hg] Univer sity of pressure [facility] Diastolic blood 2022-04-06 13:49:00 66 mm[Hg] Unive [facility] Heart rate 2022-04-06 13:49:00 73 /min [facility] Body temperature 2022-04-06 13:49:00 36.67 Christine [facility] Respiratory rate 2022-04-06 13:49:00 16 /min [facility] Body height 2022-04-06 13:49:00 154.9 cm [facility] [place] [facility] Body weight 2022-04-06 13:49:00 65.862 kg [facility] BMI 2022-04-06 13:49:00 27.44 kg/m2 [facility] Procedures Procedure Date / Time Performed Performing Clinician Sour e POCT SARS-COV-2 2023-04-25 19:21:00 Iwona Dyson Datil o f [place] ANTIGEN (BINAX NOW) Medical [facility] ch POCT MOLECULAR STREP 2023-04-25 19:07:00 Unknown, Attending [facility] PAP SMEAR-LIQUID 2023-02-23 16:26:00 Latha Kellogg [facility] CONSENT/REFUSAL FOR 2023-02-23 15:12:01 Doctor Unassigned, No [facility] AND Name Medical Branch TREATMENT POCT URINALYSIS W/O 2022-04-06 13:51:[address] [facility] [place] SPECIFIC [facility] Encounters Start End Encounter Admission Attending Care Care Encounter Source Date/Time Date/Time Type Type Clinicians Facility Department ID 2021-11-23 Outpatient MIREYA Santoro [facility] [id number] Common 14:10:32 Lauren 9[address]98 [facility] 2023-04-25 2023-04-25 Outpatient R PEDRO [facility] [id number] Univers 14:00:00 14:35:03 OMTITOEMI [facility] 2023-04-25 2023-04-25 Urgent Elli Vasquezbelen [facility] 1.2.840. [id number] Univers 14:00:00 14:35:03 Care Unknown, Attending HEALTH 350.1.13.10 ity of [place] 4.2.7.2.686 [place] as DAYAMI?BLEA [id number] [address] OFFICE [facility] 2023-03-16 2023-03-16 [facility] [id number] Univers 12:00:00 12:45:55 SHANICE [facility] 2023-03-16 2023-03-16 Urgent [facility] .2.840.11 [id number] Univers 12:00:00 12:45:55 Care Unknown, Attending HEALTH 350.1.13.10 [facility] 4.2.7.2.686 [place] as DAYAMI?BLEA [id number] [address] OFFICE [facility] 2023-03-16 2023-03-16 [facility] [id number] Univers 00:00:00 00:00:00 [facility] 350.1.13.10 it y of [facility] 4.2.7.2.686 [place] as DAYAMI?BLEA [id number] [address] OFFICE [facility] 2023-03-14 2023-03-14 Outpatient Catherine KELLOGG [facility] [id number] Univers 08:15:00 08:15:00 LATHA [facility] 2023-02-23 2023-02-23 [facility] [id number] Univers 10:30:00 11:21:[address] [facility] 2023-02-23 2023-02-23 [facility] 1.2.840.114 [id number] Univers 10:30:00 11:21:42 Visit Latha Ninoska SIGNAL SYSTEM TESTING MAINTAINER 350.1.13.10 i ty of [facility] 4.2.7.2.686 [place] as MATERNAL [id number] Med ical & CHILD 107 [facility] 2023-02-23 2023-02-23 Orders Doctor DARIANA 1.2.840.114 [id number] Univers 00:00:00 00:00:00 Only Unassigned, ISAI 350.1.13.10 ity of [place] [facility] 4.2.7.2.686 [place] as [id number] [address] 2023-02-21 2023-02-21 Operations Vocational Instructor Lab, [facility] 1.2.840.1 [id number] Univers 14:30:00 14:45:00 Visit Shanice Lopez [facility] 350.1.13.10 ity [facility] 4.2.7.2.686 [place] as DAYAMI?BLEA [phone] [place] radhadiogenes [facility] [address] [place] MEDICAL OFFICE BUILDING 2023-02-21 2023-02-21 Outpatient R JOHN [facility] [id number] Univers 13:40:00 14:17:44 [facility]23-02-21 2023-02-21 Urgent Shanice Lopez [facility] 1.2.840.11 [id number] Univers 13:40:00 14:17:44 Care Unknown, Attending [facility] 350.1.13.10 ity [facility] 4.2.7.2.686 [place] as DAYAMI?BLEA [id number] [place]x radhadiogenes [facility] [address] [place] MEDICAL OFFICE BUILDING 2023-02-19 2023-02-19 Telephone Bess [facility] 1.2.840.114 [id number] Univers 00:00:00 00:00:00 Latha A SIGNAL SYSTEM TESTING MAINTAINER 350.1.13.10 i ty of [facility] 4.2.7.2.686 [place] as MATERNAL [id number] Med ical & CHILD [address] [place] [address] 2023-02-12 2023-02-12 Outpatient R SHIRLEY [facility] [id number] Univers 09:45:00 09:45:00 JORDANPITAA ity o [facility] [place] 2022-10-25 2022-10-25 Telephone [facility] [id number] Univers 00:00:00 00:00:00 Ros[place]osa R SIGNAL SYSTEM TESTING MAINTAINER 350.1.13.10 ity [facility] 4.2.7.2.686 [place] as MATERNAL [id number] [facility] & CHILD [address] [place] [address] 2022-06-01 2022-06-01 Outpatient R SHIRLEY [facility] [id number] Univers 09:45:00 09:45:00 JORDANBRITTA raudel o [facility] [place] 2022-05-23 2022-05-23 Outpatient Catherine MCKEON [facility] [id number] Univers 11:15:00 11:15:00 AJITH [facility] 2022-05-23 2022-05-23 Outpatient Catherine KWON [facility] [id number] Univers 10:30:00 10:30:00 EDUARDO [facility] 2022-05-17 2022-05-17 Outpatient Catherine WATSON [facility] [id number] Univers 10:45:00 11:19:50 ARACELIS conklinsusan o [facility] [place] 2022-04-06 2022-04-06 Office [facility] 1.2.840.114 [id number] Univers 09:45:00 09:45:00 Visit Aracelis Alexander SIGNAL SYSTEM TESTING MAINTAINER 350.1.13.10 ity [facility] 4.2.7.2.686 [place] as MATERNAL [id number] [facility] & [address] 2022-04-06 2022-04-06 Outpatient Catherine WATSON [facility] [id number] Univers 09:45:00 09:18:45 [facility] conkliny o [facility] [place] 2022-02-17 2022-02-17 Outpatient R ADI [facility] [id number] Univers 15:00:00 15:00:00 CHANELL ity o f [facility] 2022-02-16 2022-02-16 Telephone [facility] 1.2.840.114 [id number] Univers 00:00:00 00:00:00 Chanell C SIGNAL SYSTEM TESTING MAINTAINER 350.1.13.10 ity of REGIONAL 4.2.7.2.686 [place] as MATERNAL [id number] [facility] & CHILD [address] [place] [address] 2022-02-15 2022-02-15 Telephone [facility] 1.2.840.114 [id number] Univers 00:00:00 00:00:00 Chanell C SIGNAL SYSTEM TESTING MAINTAINER 350.1.13.10 ity of REGIONAL 4.2.7.2.686 [place] MATERNAL [id number] [facility] & CHILD [address] [place] [address] 2022-02-14 2022-02-14 Telephone [facility] 1.2.840.114 [id number] Univers 00:00:00 00:00:00 Chanell C SIGNAL SYSTEM TESTING MAINTAINER 350.1.13.10 ity of REGIONAL 4.2.7.2.686 [place] as MATERNAL [id number] [facility] & CHILD [address] [place] [address] 2022-02-14 2022-02-14 Telephone [facility] 1.2.840.114 [id number] Univers 00:00:00 00:00:00 Chanell C SIGNAL SYSTEM TESTING MAINTAINER 350.1.13.10 ity of REGIONAL 4.2.7.2.686 [place] as MATERNAL [id number] [facility] & CHILD [address] [place] [address] 2022-02-10 2022-02-10 Office [facility] [id number] Univers 12:45:00 13:45:49 Visit Chanell C SIGNAL SYSTEM TESTING MAINTAINER 350.1.13.10 ity of REGIONAL 4.2.7.2.686 [place] as MATERNAL [id number] [facility] & CHILD [address] [place] [address] 2022-02-10 2022-02-10 Outpatient R ADI [facility] [id number] Univers 12:45:00 13:45:49 CHANELL starks o [facility] [place] 2022-02-10 2022-02-10 Outpatient R AKINSIPE, [facility] [id number] Univers 12:45:00 12:45:00 CHANELL starks o [facility] [place] 2022-02-10 2022-02-10 Orders Doctor DARIANA 1.2.840.114 [id number] Univers 00:00:00 00:00:00 Only Unassigned, SIAI 350.1.13.10 ity of [facility] 4.2.7.2.686 [place] as [id number] [address] 2022-02-09 2022-02-09 Outpatient R AKINSIPE, [facility] [id number] Univers 10:30:00 10:30:00 CHANELL starks o [facility] [place] 2022-02-09 2022-02-09 Outpatient R AKINSIPE, [facility] [id number] Univers 10:30:00 10:30:00 CHANELL starks o [facility] [place] 2021-10-10 2021-10-10 Outpatient R AKINSIPE, [facility] [id number] Univers 15:15:00 15:15:00 CHANELL starks o [facility] [place] 2021-09-15 2021-09-15 Tele[facility] 1.2.840.114 [id number] Univers 00:00:00 00:00:00 Chanell Riddle SIGNAL SYSTEM TESTING MAINTAINER 350.1.13.10 ity [facility] 4.2.7.2.686 [place] as MATERNAL [id number] Med ical & CHILD 107 [facility] 2021-03-07 2021-03-07 Outpatient R AKINSIPE, [facility] [id number] Univers 10:45:00 10:45:00 CHANELL starks [facility] 2021-02-23 2021-02-23 Telephone [facility] 1.2.840.114 [id number] 00:00:00 00:00:00 Chanell Riddle SIGNAL SYSTEM TESTING MAINTAINER 350.1.13.10 [facility] 4.2.7.2.686 MATERNAL [id number] & CHILD 107 [facility] 2021-02-21 2021-02-21 Outpatient R AKINSIPE, [facility] [id number] Univers 09:00:00 09:00:00 CHANELL ity o f [facility] 2020-10-28 2020-10-28 Outpatient R AKINSIPE, [facility] [id number] Univers 11:00:00 11:00:00 [address] ity o f [facility] 2020-10-18 2020-10-18 Outpatient R SHERIDAN, [facility] [id number] Univers 14:00:00 14:00:00 JONATHON starks [facility] 2020-10-14 2020-10-14 Outpatient R AKINSIPE, [facility] [id number] Univers 15:45:00 15:45:00 [address] ity o f [facility] 2020-10-01 2020-10-01 Outpatient R AKINSIPE, [facility] [id number] Univers 14:15:00 14:15:00 [address] ity o f [facility] 2020-08-13 2020-08-13 Outpatient R [facility] [id number] Univers 13:30:00 13:30:00 ity [facility] 2020-08-11 2020-08-11 Outpatient R [facility] [id number] Univers 10:00:00 10:00:00 ity [facility] 2020-06-15 2020-06-15 Outpatient R WATSON, [facility] [id number] Univers 14:30:00 14:30:00 ROSHUNDA ity o f [facility] 2020-05-25 2020-05-25 [facility] [id number] Univers 10:15:00 10:15:00 JONATHON katerinsusan [facility] 2020-05-11 2020-05-11 [facility] [id number] Univers 14:30:00 14:30:00 JONATHON starks [facility] 2020-05-10 2020-05-10 [facility] [id number] Univers 08:45:00 08:45:00 JONATHON susan [facility] 2020-03-29 2020-03-29 Outpatient R [facility] [facility] [id number] [facility] 08:00:00 08:00:00 ity [facility] 2020-03-24 2020-03-24 Outpatient Catherine WATSON [facility] [id number] Univers 15:30:00 15:30:00 ARACELIS ity o f [facility] 2020-01-28 2020-01-28 Outpatient R ADI, [facility] [id number] Univers 15:45:00 15:45:00 CHANELL ity o f [facility] 2019-07-31 2019-07-31 Outpatient [place] [id number] Common 09:00:00 09:00:[address] [facility] Results Test Description Test Time Test Comments Results Result Comments Source POCT SARS-COV-2 ANTIGEN (BINAX NOW) 2023-04-25 19:21:00 Test Item Value Reference Range Interpretation Comme nts POCT SARS-COV-2 ANTIGEN (test code = 54530-0) Not Detected Not Dete cted On board controls acceptable with C Line (test code = Yes 3574) Lab Interpretation (test code = 83244-1) [id number] 19:15:06 Test Item Value Reference Range Interpretation Comments POCT Molecular Strep (test code = Negative Negative 99717-9) Lab Interpretation (test code = Normal 68964-4) [facility] URINALYSIS W/O SPECIFIC [id number] 13:51:00 Test Item Value Reference Range Interpretation Comments POCT PH U (test code = 3254) 6 mg/dl 5-8 POCT U LEUK EST (test code = 2+ Negative - Negative 3263) POCT U NIT (test code = 3262) positive Negative - Negative POCT U PROT (test code = 3259) trace Negative - Negative POCT U GLU (test code = 3256) neg Negative - Negative POCT U KETONE (test code = 3258) neg Negative - Negative POCT U BLD (test code = 3257) large Negative - Negative [facility]
--- NOTE | 2023-04-28 08:05 | ER ---
Nurse's Notes [facility] Name: Tierra Wong Age: 27 yrs Sex: Female : 1995 Arrival Date: 04/28/2023 Time: 07:44 Bed 12 Private MD: Diagnosis: Acute tonsillitis, unspecified Presentation: 04/28 07:49 Chief complaint: Patient states: sore throat and swollen tonsils that began 4 days ago. ss Denies fever. Pt reports she was tested for COVID and Strep at urgent care 4 days ago which were negative. Coronavirus screen: Client denies travel out of the [place] in the last 14 days. Ebola Screen: Patient denies exposure to infectious person. Patient denies travel to an Ebola-affected area in the 21 days before illness onset. Initial Sepsis Screen: Does the patient meet any 2 criteria? No. Patient's initial sepsis screen is negative. Does the patient have a suspected source of infection? No. Patient's initial sepsis screen is negative. Risk Assessment: Do you want to hurt yourself or someone else? Patient reports no desire to harm self or others. Onset of symptoms was April 24, 2023. 07:49 Method Of Arrival: Ambulatory ss 07:49 Acuity: [place] 4 ss Historical: - Allergies: 07:50 No Known Allergies; ss - Home Meds: 07:50 None [Active]; ss - PMHx: 07:50 None; ss - PSHx: 07:50 None; ss - Immunization history:: Client reports receiving the 2nd dose of the Covid vaccine. - Social history:: Smoking status: Patient denies any tobacco usage or history of. - Family history:: not pertinent. - Hospitalizations: : No recent hospitalization is reported. Screenin:00 [facility] ED Fall Risk Assessment (Adult) History of falling in the last 3 months, ss including since admission No falls in past 3 months (0 pts). Abuse screen: Denies threats or abuse. Denies injuries from another. Nutritional screening: No deficits noted. Tuberculosis screening: Never had TB. Assessment: 08:00 General: Appears in no apparent distress. comfortable, well groomed, well developed, ss well nourished, Behavior is calm, cooperative. General: Denies fever. Pain: Complains of pain in throat Pain currently is 8 out of 10 on a pain scale. Neuro: Level of Consciousness is awake, alert, obeys commands, Oriented to person, place, time, situation. Respiratory: Airway is patent Respiratory effort is even, unlabored, Respiratory pattern is regular, symmetrical. Respiratory: Denies cough. GI: Patient currently denies diarrhea, nausea, vomiting. EENT: Throat throat appears pink, slightly irritated. Derm: Skin is intact, is healthy with good turgor, Skin is dry, Skin is pink, warm \T\ dry. normal. Vital Signs: 07:49 BP 124 / 82; Pulse 92; Resp 14; Temp 98.3(TE); Pulse Ox 100% on R/A; Weight 62.6 kg; ss Height 5 ft. 2 in. ; Pain 8/10; 07:49 Body Mass Index 25.24 (62.60 kg, 157.48 cm) ss 07:49 Pain Scale: Adult ss ED Course: 07:45 Patient arrived in ED. rg4 07:50 Triage completed. ss 07:50 Arm band placed on right wrist. ss 07:57 Saud Pineda MD is Attending Physician. rn 07:59 Linda Lovell, ARELI is Primary Nurse. ss 08:00 Patient has correct armband on for positive identification. Bed in low position. ss 08:08 No provider procedures requiring assistance completed. Patient did not have IV access ss during this emergency room visit. Administered Medications: No medications were administered Medication: 08:00 VIS not applicable for this client. ss Outcome: 08:05 Discharge ordered by . rn 08:08 Discharged to home ambulatory. ss 08:08 Condition: good 08:08 Discharge instructions given to patient, Instructed on discharge instructions, follow up and referral plans. Demonstrated understanding of instructions, follow-up care. 08:08 Patient left the ED. ss Signatures: Saud Pineda MD MD rn Blanchard, Shelby, RN RN ss Garcia, Rubi rg4
--- NOTE | 2023-04-28 08:06 | EDPHYS ---
Physician Documentation [facility] Name: Tierra Wong Age: 27 yrs Sex: Female : 1995 Arrival Date: 04/28/2023 Time: 07:44 Bed 12 Private MD: ED Physician Saud Pineda HPI: 04/28 08:01 This 27 yrs old Female presents to ER via Ambulatory with complaints of Sore Throat. rn 08:01 The patient presents with sore throat. The patient describes throat pain as raw. Onset: rn The symptoms/episode began/occurred 4 day(s) ago. Severity of symptoms: At their worst the symptoms were moderate, in the emergency department the symptoms are unchanged. Associated signs and symptoms: Pertinent negatives cough, flu-like symptoms, rhinorrhea, shortness of breath. The patient has not experienced similar symptoms in the past. Pt with sore throat, subjective fever, for 4 days, seen at urgent care with neg covid and strep the 1st day, comes in today because not improving.. Historical: - Allergies: 07:50 No Known Allergies; ss - Home Meds: 07:50 None [Active]; ss - PMHx: 07:50 None; ss - PSHx: 07:50 None; ss - Immunization history:: Client reports receiving the 2nd dose of the Covid vaccine. - Social history:: Smoking status: Patient denies any tobacco usage or history of. - Family history:: not pertinent. - Hospitalizations: : No recent hospitalization is reported. ROS: 08:01 Constitutional: + fever ENT: + sore throat Neck: Negative for injury, pain, and rn swelling, Cardiovascular: Negative for chest pain, palpitations, and edema, Respiratory: Negative for shortness of breath, cough, wheezing, and pleuritic chest pain, Abdomen/GI: Negative for abdominal pain, nausea, vomiting, diarrhea, and constipation, MS/Extremity: Negative for injury and deformity, Skin: Negative for injury, rash, and discoloration, Neuro: Negative for headache, weakness, numbness, tingling, and seizure. Exam: 08:01 Constitutional: This is a well developed, well nourished patient who is awake, alert, rn and in no acute distress. ENT: + mild tonsillar hypertrophy with exudate, uvula midline, no swelling, no stridor Neck: Trachea midline, no masses palpated, and no cervical lymphadenopathy. Supple, full range of motion without nuchal rigidity, or vertebral point tenderness. No Meningismus. Vital Signs: 07:49 BP 124 / 82; Pulse 92; Resp 14; Temp 98.3(TE); Pulse Ox 100% on R/A; Weight 62.6 kg; ss Height 5 ft. 2 in. ; Pain 8/10; 07:49 Body Mass Index 25.24 (62.60 kg, 157.48 cm) ss 07:49 Pain Scale: Adult ss MDM: 07:57 Patient medically screened. rn 08:01 Differential diagnosis: laryngitis, pharyngitis, tonsillitis. Data reviewed: vital rn signs, nurses notes, and as a result, I will discharge patient. Counseling: I had a detailed discussion with the patient and/or guardian regarding: the historical points, exam findings, and any diagnostic results supporting the discharge/admit diagnosis, the need for outpatient follow up, to return to the emergency department if symptoms worsen or persist or if there are any questions or concerns that arise at home. Special discussion: I discussed with the patient/guardian in detail that at this point there is no indication for admission to the hospital. It is understood, however, that if the symptoms persist or worsen the patient needs to return immediately for re-evaluation. Administered Medications: No medications were administered Disposition Summary: 04/28/23 08:05 Discharge Ordered Location: Home rn Problem: new rn Symptoms: have improved rn Condition: Stable rn Diagnosis - Acute tonsillitis, unspecified rn Followup: rn - With: Private Physician - When: As needed - Reason: Recheck today's complaints, Re-evaluation by your physician Discharge Instructions: - Discharge Summary Sheet rn - Tonsillitis rn Forms: - Medication Reconciliation Form rn - Thank You Letter rn - Antibiotic compensation intern - Prescription Opioid Use rn - [email or web address] rn Prescriptions: - Augmentin 875-125 mg Oral Tablet - take 1 tablet by ORAL route every 12 hours for 10 days; 20 tablet; Refills: 0, rn Product Selection Permitted Signatures: Saud Pineda MD MD rn Blanchard, Shelby, RN RN
[2023-04-28 08:13] VITALS: BP 124/82; TEMP 98.3; O2SAT 100
== END 2023-04-28 08:08 | disposition home or self-care (01) ==
LOC: ER 07:44
DX: J03.90 Acute tonsillitis, unspecified (principal)
CPT/HCPCS: 99282

== ENCOUNTER 2024-03-06 09:45 | Emergency (ER) | payer OTHER ==
--- OUTSIDE RECORDS SUMMARY | 2024-03-06 09:49 | XMS REPORT | Continuity of Care Document ---
Author Name Unknown Address [address] [facility] [address] [place] [address] [facility] Address [address] [facility] [address] [place] [address] Care Team Providers Care Brilliandeer Lopper Name Role Phone LATHA KELLOGG Primary Care Physician Lauren Galindo Attending Clinician Unavailable JOSE E LAWRENCE Attending Clinician JOSE E Borrero Attending Clinician Grayson ayers Doctor Unassigned, [place] Attending Clinician U navailable 2, [facility] Lab Attending Clinician Unavailable LINDA DYSON Attending Clinician Unavailable Linda Dyson MD Attending Clinician [phone] Unknown, Attending Attending Clinician UnavailShanice Trinh PA-C Attending Clinician [phone] Edu Oshea Attending Clinician [phone] EDU VASQUEZ Attending Clinician UnavailMARCE Perkins Attending Clinician Unavailable LATHA KELLOGG Attending Clinician Unavailnani Hopkins MA, January Attending Clinician UnavailTED Marsh Attending Clinician Unavailable Provider, Mateo Temevelyne Attending Clinician Ted Castillo Attending Clinician [phone] Visit, [facility] Dermatology Nurse Attending Clinician Unavailable Carlyn Wilson MD Attending Clinician [phone] CARLYN WILSON Attending Clinician UnavailJose Beard MD Attending Clinician [phone] JONELLE HOPPER Attending Clinician Unavailable Jonelle Hopper MD Attending Clinician [phone] Marce Byrd Attending Clinician [phone] SHANICE LOPEZ Attending Clinician Unavailable Latha Kellogg CNM Attending Clinician Lab, Ang - Db Attending Clinician Unavailable ARACELIS WATSON Attending Clinician Unavailab Aracelis Lipscomb Attending Clinician + [phone] AJITH MCKEON Attending Clinician Unavailabl EDUARDO Bess Attending Clinician Unavailab CHANELL Jose Attending Clinician Unavail able Chanell Batista Attending Clinician + JONATHON SWARTZ Attending Clinician Unavailjos ace Payers Payer Name Policy Type Policy Number Effective Date Expirati on Date Source [place] [employer] [id number] 2023 00:00:00 Problems Condition Name Condition Details Condition Category Status Onset Date Resolution Date Last Treatment Date Treating Clinician Comments Source High-risk in first trimester High-risk in first trimester Disease Active 02-24 00:00: 00 [facility] Bipolar disease during in first trimester Bipolar disease during in first trimester Disease Active 02-24 00:00: 00 [facility] Previous section complicati ng Previous section complicati ng Disease Active 4- 00:00: 00 [facility] Depression screening Depression screening Disease Active 2022-10 0 00:00: 00 [facility] Bilateral leg paresthesi a Bilateral leg paresthesi a Disease Active 2022-10 0- 00:00: 00 [facility] Atypical nevi Atypical nevi Disease Active 06-19 00:00: 00 [facility] BMI 27.0-27.9, adult BMI 27.0-27.9, adult Disease Active 8- 00:00: 00 [facility] Current every day vaping Current every day vaping Disease Active 02-25 00:00: 00 [facility] Overweight (BMI 25.0-29.9) Overweight (BMI 25.0-29.9) Disease Active 4-30 00:00: 00 [facility] Dysuria Dysuria Disease Active 6-09 00:00: 00 [facility] Screening examinatio n for STD (sexually transmitte d disease) Screening examinatio n for STD (sexually transmitte d disease) Disease Active 2019-10 2-17 00:00: 00 [facility] Nexplanon in place Nexplanon in place Disease Active 7-28 00:00: 00 [facility] Venereal disease screening Venereal disease screening Disease Active 2-12 00:00: 00 [facility] BMI 24.0-24.9, adult BMI 24.0-24.9, adult Disease Active 2-12 00:00: 00 [facility] Tobacco use disorder Tobacco use disorder Disease Active 2-12 00:00: 00 [facility] Vaginal discharge Vaginal discharge Disease Active 2-12 00:00: 00 [facility] Bilateral leg paresthesi a Bilateral leg paresthesi a Problem Active [facility] Depression screening Depression screening Diagnosis Active [facility] Well adult exam Well adult exam Diagnosis Active [facility] Allergies, Adverse Reactions, Alerts Allergy Name Allergy Type Status Severity Reaction(s) Onset Date Inactive Date Treating Clinician Comments Source NO KNOWN ALLERGIE S Drug Class Active [facility] Social History Social Habit Start Date Stop Date Quantity Comments Source History of tobacco use 2019-07-10 00:00:00 Cigarette Smoker [facility] ASSERTION [facility] History SDOH Alcohol Frequency [facility] History SDOH Alcohol Std Drinks [facility] History SDOH Alcohol Binge [facility] Alcohol intake 2024-02-25 00:00:00 2024-02-25 00:00:00 Ex-drinker (finding) [facility] Exposure to SARS-CoV-2 (event) 2023-03-06 00:00:00 2023-03-16 09:43:00 Not sure [facility] History of Social function 2023-02-23 00:00:00 2023-02-23 00:00:00 [facility] Tobacco use and exposure 2023-02-23 00:00:00 2023-02-23 00:00:00 Smokeless tobacco non-user [facility] Tobacco Comment 2022-05-17 00:00:00 2022-05-17 00:00:00 vapes [facility] Alcohol Comment 2019-12-10 00:00:00 2019-12-10 00:00:00 occasional [facility] Sex Assigned At 1995 00:00:00 1995 00:00:00 [facility] Smoking Status Start Date Stop Date Source Ex-smoker 2023-02-23 00:00:00 2023-02-23 00:00:00 [facility] Occasional tobacco smoker 2019-12-10 00:00:00 [facility] Medications Ordered Medication Name Filled Medication Name Start Date Stop Date Current Medication? Ordering Clinician Indication Dosage Frequency Signature (SIG) Comments Components Source PNV 67-iron ps-folate no.1-dha (VITAFOL ULTRA) 29 mg iron- 1 mg-200 mg Cap 02-24 00:00: 00 Yes [id number] 1{tbl} Take 1 tablet by mouth in the morning. If insurance does not cover can substituen t with any other mediation that contains components . [facility] neomycin-po lymyxin-hyd rocortisone otic solution 12-17 00:00: 00 Yes [id number] 4[drp] Place 4 Drops in right ear 4 (four) times daily. [facility] ibuprofen 600 mg tablet 12-17 00:00: 00 Yes [id number] 600mg Take 1 tablet by mouth every 6 (six) hours as needed for Pain (scale 1-3) or Pain (scale 4-6). [facility] COVID-19 antigen test (BINAXNOW COVD AG CARD HOME TST) Kit 12-17 00:00: 00 12-18 05:59 :00 Yes [id number] 1{box} 1 Box once now for 1 dose. [facility] ARIPiprazol e 2 mg tablet 11-26 00:00: 00 Yes 2mg Take 1 tablet by mouth every morning. [facility] buPROPion XL 150 mg 24 hr tablet 11-26 00:00: 00 Yes 150mg Take 1 tablet by mouth every morning. [facility] amoxicillin 500 mg capsule 2022-10 00:00: 00 10-26 05:59 :00 No [id number] 500mg Take 1 capsule by mouth in the morning and 1 capsule in the evening. Do all this for 7 days. [facility] metroNIDAZO LE (FLAGYL) 500 mg tablet 2022-10 00:00: 00 10-25 05:59 :00 No [id number] 500mg Take 1 tablet by mouth every 12 (twelve) hours for 7 days. [facility] mupirocin 2 % ointment 06-28 00:00: 00 Yes Apply to area(s) 3 (three) times daily. [facility] acetaminoph en 325 mg tablet 06-26 00:00: 00 06-26 04:59 :00 No [id number] 650mg Take 2 tablets by mouth every 4 (four) hours as needed for Alternate with ibuprofen for pain scale 4-6. [facility] doxycycline monohydrate 100 mg capsule 06-25 00:00: 00 07-06 04:59 :00 No [id number] 100mg Take 1 capsule by mouth in the morning and 1 capsule in the evening. Do all this for 10 days. [facility] bromphenira mine-pseudo ephedrine-D M (BROMFED DM) 2-30-10 mg/5 mL syrup 03-16 00:00: 00 08-04 00:00 :00 No [id number] 5mL Take 5 mL by mouth 3 (three) times daily as needed for Cold symptoms. [facility] cetirizine 10 mg tablet 2023-0 5-19 00:00: 00 08-04 00:00 :00 No [id number] 10mg Take 1 tablet by mouth in the morning. [facility] Nitrofurant oin&Nit. Macrocryst (MACROBID) 100 mg capsule 4- 00:00: 00 02-25 00:00 :00 No [id number] 100mg Take 1 capsule by mouth in the morning and 1 capsule in the evening. [facility] Nitrofurant oin&Nit. Macrocryst (MACROBID) 100 mg capsule 6-09 00:00: 00 04-17 04:59 :00 No [id number] 100mg Take 1 capsule by mouth 2 (two) times daily for 10 days. [facility] metroNIDAZO LE 500 mg tablet 02-23 00:00: 00 02-25 00:00 :00 No [id number] 500mg Take 1 tablet by mouth 2 (two) times daily. [facility] metroNIDAZO LE 500 mg tablet 2019-10 00:00: 00 02-25 00:00 :00 No [id number] 500mg Take 1 tablet by mouth 2 (two) times daily. [facility] Vital Signs Vital Name Observation Time Observation Value Comments S ana paula Systolic blood pressure 2024-02-25 14:59:00 111 mm[Hg] [facility] Diastolic blood pressure 2024-02-25 14:59:00 73 mm[Hg] [facility] Heart rate 2024-02-25 14:59:00 79 /min [facility] Body temperature 2024-02-25 14:59:00 37.06 Christine [facility] Respiratory rate 2024-02-25 14:59:00 18 /min [facility] Body height 2024-02-25 14:59:00 154.9 cm [facility] Body weight 2024-02-25 14:59:00 62.143 kg [facility] BMI 2024-02-25 14:59:00 25.89 kg/m2 [facility] Systolic blood pressure 2023-12-17 22:41:00 112 mm[Hg] [facility] Diastolic blood pressure 2023-12-17 22:41:00 78 mm[Hg] [facility] Heart rate 2023-12-17 22:41:00 90 /min [facility] Body temperature 2023-12-17 22:41:00 37.22 Christine [facility] Respiratory rate 2023-12-17 22:41:00 14 /min [facility] Body height 2023-12-17 22:41:00 154.9 cm [facility] Body weight 2023-12-17 22:41:00 61.462 kg [facility] BMI 2023-12-17 22:41:00 25.60 kg/m2 [facility] Systolic blood pressure 2023-10-16 16:23:00 110 mm[Hg] [facility] Diastolic blood pressure 2023-10-16 16:23:00 72 mm[Hg] [facility] Heart rate 2023-10-16 16:23:00 72 /min [facility] Body temperature 2023-10-16 16:23:00 36.61 Christine [facility] Respiratory rate 2023-10-16 16:23:00 14 /min [facility] Body height 2023-10-16 16:23:00 154.9 cm [facility] Body weight 2023-10-16 16:23:00 62.959 kg [facility] BMI 2023-10-16 16:23:00 26.23 kg/m2 [facility] Oxygen saturation in Arterial blood by Pulse oximetry 2023-10-16 16:23:00 99 /min [facility] Systolic blood pressure 2023-08-04 17:15:00 121 mm[Hg] [facility] Diastolic blood pressure 2023-08-04 17:15:00 70 mm[Hg] [facility] Heart rate 2023-08-04 17:15:00 64 /min [facility] Body temperature 2023-08-04 17:15:00 36.39 Christine [facility] Respiratory rate 2023-08-04 17:15:00 17 /min [facility] Body height 2023-08-04 17:15:00 154.9 cm [facility] Body weight 2023-08-04 17:15:00 64.365 kg [facility] BMI 2023-08-04 17:15:00 26.81 kg/m2 [facility] Systolic blood pressure 2023-06-19 20:03:00 110 mm[Hg] [facility] Diastolic blood pressure 2023-06-19 20:03:00 64 mm[Hg] [facility] Heart rate 2023-06-19 20:03:00 69 /min [facility] Body temperature 2023-06-19 20:03:00 36.78 Christine [facility] Body height 2023-06-19 20:03:00 154.9 cm [facility] Body weight 2023-06-19 20:03:00 64.864 kg [facility] BMI 2023-06-19 20:03:00 27.02 kg/m2 [facility] Systolic blood pressure 2023-04-25 18:59:00 115 mm[Hg] [facility] Diastolic blood pressure 2023-04-25 18:59:00 79 mm[Hg] [facility] Heart rate 2023-04-25 18:59:00 111 /min [facility] Body temperature 2023-04-25 18:59:00 37.06 Christine [facility] Respiratory rate 2023-04-25 18:59:00 18 /min [facility] Body height 2023-04-25 18:59:00 157.5 cm [facility] Body weight 2023-04-25 18:59:00 63.413 kg [facility] BMI 2023-04-25 18:59:00 25.57 kg/m2 [facility] Oxygen saturation in Arterial blood by Pulse oximetry 2023-04-25 18:59:00 100 /min [facility] Systolic blood pressure 2023-03-16 17:18:00 115 mm[Hg] [facility] Diastolic blood pressure 2023-03-16 17:18:00 77 mm[Hg] [facility] Heart rate 2023-03-16 17:18:00 76 /min [facility] Body temperature 2023-03-16 17:18:00 36.89 Christine [facility] Respiratory rate 2023-03-16 17:18:00 16 /min [facility] Body weight 2023-03-16 17:18:00 65.182 kg [facility] BMI 2023-03-16 17:18:00 26.28 kg/m2 [facility] Oxygen saturation in Arterial blood by Pulse oximetry 2023-03-16 17:18:00 96 /min [facility] Systolic blood pressure 2023-02-23 15:24:00 128 mm[Hg] [facility] Diastolic blood pressure 2023-02-23 15:24:00 83 mm[Hg] [facility] Heart rate 2023-02-23 15:24:00 80 /min [facility] Body temperature 2023-02-23 15:23:00 36.61 Christine [facility] Respiratory rate 2023-02-23 15:23:00 18 /min [facility] Body height 2023-02-23 15:23:00 157.5 cm [facility] Body weight 2023-02-23 15:23:00 64.638 kg [facility] BMI 2023-02-23 15:23:00 26.06 kg/m2 [facility] Systolic blood pressure 2023-02-21 18:38:00 110 mm[Hg] [facility] Diastolic blood pressure 2023-02-21 18:38:00 65 mm[Hg] [facility] Heart rate 2023-02-21 18:38:00 70 /min [facility] Body temperature 2023-02-21 18:38:00 37 Christine [facility] Respiratory rate 2023-02-21 18:38:00 16 /min [facility] Body height 2023-02-21 18:38:00 157.5 cm [facility] Body weight 2023-02-21 18:38:00 65.817 kg [facility] BMI 2023-02-21 18:38:00 26.54 kg/m2 [facility] Oxygen saturation in Arterial blood by Pulse oximetry 2023-02-21 18:38:00 97 /min [facility] Systolic blood pressure 2022-04-06 13:49:00 112 mm[Hg] [facility] Diastolic blood pressure 2022-04-06 13:49:00 66 mm[Hg] [facility] Heart rate 2022-04-06 13:49:00 73 /min [facility] Body temperature 2022-04-06 13:49:00 36.67 Christine [facility] Respiratory rate 2022-04-06 13:49:00 16 /min [facility] Body height 2022-04-06 13:49:00 154.9 cm [facility] Body weight 2022-04-06 13:49:00 65.862 kg [facility] BMI 2022-04-06 13:49:00 27.44 kg/m2 [facility] Procedures Procedure Date / Time Performed Performing Clinicia n Source POCT TEST 2023-10-16 16:29:00 Elli Vasquez [facility] POCT URINALYSIS 2023-10-16 16:26:00 Nishi Donovan [facility] FLU VACC ([id number]), 6 MO-64 YRS, .5ML, IM, QUAD (FLUCELVAX) 2023-08-04 17:42:16 Ted Watts [facility] DISCLOSURE AND CONSENT, MEDICAL AND SURGICAL PROCEDURES 2023-08-04 05:01:00 Doctor Unassigned, [place] [facility] POCT SARS-COV-2 ANTIGEN (BINAX NOW) 2023-04-25 19:21:00 Linda Dyson [facility] POCT MOLECULAR STREP 2023-04-25 19:07:00 Unknown, Atte geraldine [facility] PAP SMEAR-LIQUID BASED-CP 2023-02-23 16:26:00 Latha Kellogg [facility] CONSENT/REFUSAL FOR DIAGNOSIS AND TREATMENT 2023-02-23 15:12:01 Doctor Unassigned, [place] [facility] POCT URINALYSIS W/O SPECIFIC GRAVITY 2022-04-06 13:51:00 WatsonAracelis [facility] Encounters Start Date/Time End Date/Time Encounter Type Admission Type Attending [facility] Care Facility Care Department Encounter ID Source 2021-11-23 14:10:32 Outpatient Lauren Santoro [facility] [id number] [facility] 2024-03-14 08:00:00 2024-03-14 08:00:00 Outpatient R RODRIGUEZ-DONNA S, JOSE E RODRIGUEZ-DONNA S, JOSE E [facility] [id number] [facility] 2024-02-27 00:00:00 2024-02-27 00:00:00 Patient Secure Msg Doctor Unassigned, [place] [facility] 1.2.840.114 350.1.13.10 4.2.7.2.686 [id number] [facility] 2024-02-25 11:00:00 2024-02-25 11:00:00 Licensing Manager Visit 2, Adc [facility] Rodriguez-Donna s, Jose E [facility] 1.2.840.114 350.1.13.10 4.2.7.2.686 [id number] [facility] 2024-02-25 10:00:00 2024-02-25 10:45:36 Outpatient R RODRIGUEZ-DONNA S, JOSE E RODRIGUEZ-DONNA S, JOSE E [facility] [id number] [facility] 2024-02-25 10:00:00 2024-02-25 10:45:36 Initial Visit Rodriguez-Donna s, Jose E [facility] 1.2.840.114 350.1.13.10 4.2.7.2.686 [id number] [facility] 2023-12-17 16:25:00 2023-12-17 16:59:56 Outpatient R LINDA DYSON [facility] [id number] [facility] 2023-12-17 16:25:00 2023-12-17 16:59:56 Urgent Care Linda Dyson Unknown, Attending [facility] 1.2.840.114 350.1.13.10 4.2.7.2.686 [id number] [facility] 2023-10-18 00:00:00 2023-10-18 00:00:00 Case Management Shanice Lopez [facility] 1..840.114 350.1.13.10 4.2.7.2.686 [id number] [facility] 2023-10-17 00:00:00 2023-10-17 00:00:00 Telephone Edu Vasquez [facility] 1.2.840.114 350.1.13.10 4.2.7.2.686 [id number] [facility] 2023-10-16 10:00:00 2023-10-16 10:20:00 Urgent Care UshayajairaEdu barton Unknown, Attending [facility] 1.2.840.114 350.1.13.10 4.2.7.2.686 [id number] [facility] 2023-10-16 10:00:00 2023-10-16 10:00:00 Outpatient R EDU VASQUEZ [facility] [id number] [facility] 2023-10-16 00:00:00 2023-10-16 00:00:00 Telephone Edu Vasquez [facility] 1.114 350.1.13.10 4.2.7.2.686 [id number] [facility] 2023-09-03 08:00:00 2023-09-03 08:00:00 Outpatient R MARCE VEGA [facility] [id number] [facility] 2023-08-28 00:00:00 2023-08-28 00:00:00 Pre Visit Outreach Chantale Hopkins 1.114 350.1.13.10 4.2.7.2.686 [id number] [facility] 2023-08-04 12:00:00 2023-08-04 12:43:52 Outpatient R TED WATTS [facility] [id number] [facility] 2023-08-04 12:00:00 2023-08-04 12:43:52 Office Visit Provider, AnderschTed Alberts [facility] HAND OR MACHINE PASTER [facility]ERNAL & [facility]ILD [facility] 1.114 350.1.13.10 4.2.7.2.686 [id number] [facility] 2023-08-04 00:00:00 2023-08-04 00:00:00 Orders Only Doctor Unassigned, [place] [facility] 1.114 350.1.13.10 4.2.7.2.686 [id number] [facility] 2023-07-11 15:30:00 2023-07-11 15:30:00 Outpatient R [facility] [id number] [facility] 2023-06-28 15:30:00 2023-06-28 15:45:00 Nurse Visit Visit, [facility].114 350.1.13.10 4.2.7.2.686 [id number] [facility] 2023-06-28 15:30:00 2023-06-28 15:30:00 Outpatient CARLYN CUEVAS [facility] [id number] [facility] 2023-06-28 00:00:00 2023-06-28 00:00:00 Telephone Jose Hayden [facility] 1.840.114 350.1.13.10 4.2.7.2.686 [id number] [facility] 2023-06-26 00:00:00 2023-06-26 00:00:00 Case Management [facility] 1.2.840.114 350.1.13.10 4.2.7.2.686 [id number] [facility] 2023-06-25 00:00:00 2023-06-25 00:00:00 Case Management [facility] 1.2.840.114 350.1.13.10 4.2.7.2.686 [id number] [facility] 2023-06-25 00:00:00 2023-06-25 00:00:00 Telephone Jackelyn Jose [facility] 1.840.114 350.1.13.10 4.2.7.2.686 [id number] [facility] 2023-06-20 13:30:00 2023-06-20 14:16:21 Outpatient JONELLE TERRY [facility] [id number] [facility] 2023-06-20 13:30:00 2023-06-20 14:16:21 Office Visit Jose Hayden Kathleen [facility] 1.840.114 350.1.13.10 4.2.7.2.686 [id number] [facility] 2023-06-19 15:00:00 2023-06-19 15:30:00 Office Visit Marce Vega [facility] 1.84.114 350.1.13.10 4.2.7.2.686 [id number] [facility] 2023-06-19 15:00:00 2023-06-19 15:00:00 Outpatient R MARCE VEGA [facility] [id number] [facility] 2023-04-25 14:00:00 2023-04-25 14:35:03 Outpatient R NIK VASQUEZDesirae [facility] [id number] [facility] 2023-04-25 14:00:00 2023-04-25 14:35:03 Urgent Care Edu Vasquez Unknown, Attending [facility] 1.84.114 350.1.13.10 4.2.7.2.686 [id number] [facility] 2023-03-16 12:00:00 2023-03-16 12:45:55 Outpatient R SHANICE LOPEZ [facility] [id number] [facility] 2023-03-16 12:00:00 2023-03-16 12:45:55 Urgent Care Shanice Lopez Unknown, Attending [facility] 1.84.114 350.1.13.10 4.2.7.2.686 [id number] [facility] 2023-03-16 00:00:00 2023-03-16 00:00:00 [facility] 1.84.114 350.1.13.10 4.2.7.2.686 [id number] [facility] 2023-03-14 08:15:00 2023-03-14 08:15:00 Outpatient R LATHA KELLOGG [facility] [id number] [facility] 2023-02-23 10:30:00 2023-02-23 11:21:42 Outpatient R BRITTANYMarion LATHA [facility] [id number] [facility] 2023-02-23 10:30:00 2023-02-23 11:21:42 Office Visit Latha [place] [facility] HAND OR MACHINE PASTER [facility] MATERNAL & CHILD [facility] 1.840.114 350.1.13.10 4.2.7.2.686 [id number] [facility] 2023-02-23 00:00:00 2023-02-23 00:00:00 Orders Only Doctor Unassigned, [place] [facility] 1.840.114 350.1.13.10 4.2.7.2.686 [id number] [facility] 2023-02-21 14:30:00 2023-02-21 14:45:00 Licensing Manager Visit Lab, Shanice Schaffer [facility] 1..840.114 350.1.13.10 4.2.7.2.686 [id number] [facility] 2023-02-21 13:40:00 2023-02-21 14:17:44 Outpatient R SHANICE LOPEZ [facility] [id number] [facility] 2023-02-21 13:40:00 2023-02-21 14:17:44 Urgent Care Shanice Lopez Unknown, Attending COUNTS INCLUDE 234 BEDS AT THE [facility] OFF[facility] BUILD[facility] 1..840.114 350.1.13.10 4.2.7.2.686 [id number] [facility] 2023-02-19 00:00:00 2023-02-19 00:00:00 Telephone Latha [place] [facility] HAND OR MACHINE PASTER [facility] MATERNAL & CHILD [facility] 1.2.840.114 350.1.13.10 4.2.7.2.686 [id number] [facility] 2023-02-12 09:45:00 2023-02-12 09:45:00 Outpatient R ARACELIS WATSON [facility] [id number] [facility] 2022-10-25 00:00:00 2022-10-25 00:00:00 Telephone Aracelis Watson [facility] HAND OR MACHINE PASTER [facility] & CHILD [facility] ..840.114 350.1.13.10 4.2.7.2.686 [id number] [facility] 2022-06-01 09:45:00 2022-06-01 09:45:00 Outpatient R ARACELIS WATSON [facility] [id number] [facility] 2022-05-23 11:15:00 2022-05-23 11:15:00 Outpatient R AJITH MCKEON [facility] [id number] [facility] 2022-05-23 10:30:00 2022-05-23 10:30:00 Outpatient R EDUARDO KWON [facility] [id number] [facility] 2022-05-17 10:45:00 2022-05-17 11:19:50 Outpatient R ARACELIS WATSON [facility] [id number] [facility] 2022-04-06 09:45:00 2022-04-06 09:45:00 Office Visit Aracelis Watson [facility] HAND OR MACHINE PASTER [facility] & CHILD [facility] 1..840.114 350.1.13.10 4.2.7.2.686 [id number] [facility] 2022-04-06 09:45:00 2022-04-06 09:18:45 Outpatient R RAACELIS WATSON [facility] [id number] [facility] 2022-02-17 15:00:00 2022-02-17 15:00:00 Outpatient R CHANELL JOSHI [facility] [id number] [facility] 2022-02-16 00:00:00 2022-02-16 00:00:00 Telephone Chanell Joshi [facility] HAND OR MACHINE PASTER [facility] & CHILD [facility] 1.2.840.114 350.1.13.10 4.2.7.2.686 [id number] [facility] 2022-02-15 00:00:00 2022-02-15 00:00:00 Telephone Chanell Joshi [facility] HAND OR MACHINE PASTER [facility] & CHILD [facility] 1.2.840.114 350.1.13.10 4.2.7.2.686 [id number] [facility] 2022-02-14 00:00:00 2022-02-14 00:00:00 Telephone Chanell Joshi [facility] HAND OR MACHINE PASTER [facility] CHILD [facility] 1.2.840.114 350.1.13.10 4.2.7.2.686 [id number] [facility] 2022-02-14 00:00:00 2022-02-14 00:00:00 Telephone Chanell Joshi [facility] HAND OR MACHINE PASTER [facility] & CHILD [facility] 1.2.840.114 350.1.13.10 4.2.7.2.686 [id number] [facility] 2022-02-10 12:45:00 2022-02-10 13:45:49 Office Visit Chanell Joshi [facility] HAND OR MACHINE PASTER [facility] & CHILD [facility] 1.2.840.114 350.1.13.10 4.2.7.2.686 [id number] [facility] 2022-02-10 12:45:00 2022-02-10 13:45:49 Outpatient R CHANELL JOSHI [facility] [id number] [facility] 2022-02-10 12:45:00 2022-02-10 12:45:00 Outpatient R CHANELL JOSHI [facility] [id number] [facility] 2022-02-10 00:00:00 2022-02-10 00:00:00 Orders Only Doctor Unassigned, [place] [facility] ..840.114 350.1.13.10 4.2.7.2.686 [id number] [facility] 2022-02-09 10:30:00 2022-02-09 10:30:00 Outpatient R CHANELL JOSHI [facility] [id number] [facility] 2022-02-09 10:30:00 2022-02-09 10:30:00 Outpatient R CHANELL JOSHI [facility] [id number] [facility] 2021-10-10 15:15:00 2021-10-10 15:15:00 Outpatient R CHANELL JOSHI [facility] [id number] [facility] 2021-09-15 00:00:00 2021-09-15 00:00:00 Telephone Chanell Joshi [facility] HAND OR MACHINE PASTER [facility] & CHILD [facility] 10.30.840.114 350.1.13.10 4.2.7.2.686 [id number] [facility] 2021-03-07 10:45:00 2021-03-07 10:45:00 Outpatient R SHIRAZDANIALCHANELL [facility] [id number] [facility] 2021-02-23 00:00:00 2021-02-23 00:00:00 Telephone Chanell Joshi [facility] HAND OR MACHINE PASTER [facility] & CHILD [facility] 10.30.840.114 350.1.13.10 4.2.7.2.686 [id number] 107 [id number] 2021-02-21 09:00:00 2021-02-21 09:00:00 Outpatient R CHANELL JOSHI [facility] [id number] [facility] 2020-10-28 11:00:00 2020-10-28 11:00:00 Outpatient R CHANELL JOSHI [facility] [id number] [facility] 2020-10-18 14:00:00 2020-10-18 14:00:00 Outpatient R JONATHON SWARZT [facility] [id number] [facility] 2020-10-15 00:00:00 2020-10-15 00:00:00 Patient Secure Msg Doctor Unassigned, [place] JONH ESPINOZA 1.2.840.114 350.1.13.10 4.2.7.2.686 [id number] [facility] 2020-10-14 15:45:00 2020-10-14 15:45:00 Outpatient R CHANELL JOSHI [facility] [id number] [facility] 2020-10-01 14:15:00 2020-10-01 14:15:00 Outpatient R CHANELL JOSHI [facility] [id number] [facility] 2020-08-13 13:30:00 2020-08-13 13:30:00 Outpatient R [facility] [id number] [facility] 2020-08-11 10:00:00 2020-08-11 10:00:00 Outpatient R [facility] [id number] [facility] 2020-06-15 14:30:00 2020-06-15 14:30:00 Outpatient R ARACELIS WATSON [facility] [id number] [facility] 2020-05-25 10:15:00 2020-05-25 10:15:00 Outpatient R JONATHON SWARTZ [facility] [id number] [facility] 2020-05-11 14:30:00 2020-05-11 14:30:00 Outpatient R JONATHON SWARTZ [facility] [id number] [facility] 2020-05-10 08:45:00 2020-05-10 08:45:00 Outpatient JONATHON GARCIA [facility] [id number] [facility] 2020-03-29 08:00:00 2020-03-29 08:00:00 Outpatient R [facility] [id number] [facility] 2020-03-24 15:30:00 2020-03-24 15:30:00 Outpatient ARACELIS ABBOTT [facility] [id number] [facility] 2020-01-28 15:45:00 2020-01-28 15:45:00 Outpatient CHANELL LÓPEZ [facility] [id number] [facility] 2019-07-31 09:00:00 2019-07-31 09:00:00 [facility] [id number] Results Test Description Test Time Test Comments Results Result Co mments Source [facility] Urinalysis W Specific Oqzmgge6848-70-26 16:27:00* Test Item Value Reference Range Interpretation Comme nts POCT U SP GRAV (test code = 3255) 1.020 mg/dl 1.005-1.025 POCT PH U (test code = 3254) 6 mg/dl 5-8 POCT U LEUK EST (test code = 3263) + Negative - Negative POCT U NIT (test code = 3262) neg Negative - Negati ve POCT U PROT (test code = 3259) trace Negative - Negative POCT U GLU (test code = 3256) neg Negative - Negati ve POCT U KETONE (test code = 3258) neg Negative - Negative POCT U UROBILI (test code = 3260) neg 0.2-1 POCT U BILI (test code = 3261) neg Negative - Negative POCT U BLD (test code = 3257) neg Negative - Negati ve POCT U COLOR (test code = 3266) yellow POCT U APPEAR (test code = 3267) cloudy Lab Interpretation (test cod e = 87209-3) Abnormal [facility] SARS-COV-2 ANTIGEN (BINAX NOW)2023-04-25 19:21:00* Test Item Value Reference Range Interpretation Comme nts POCT SARS-COV-2 ANTIGEN (ngozi t code = 65480-2) Not Detected Not Detected On board controls acceptable with C Line (test code = 3574) Yes Lab Interpretation (test cod e = 81681-5) Normal [facility] MOLECULAR KLDWE9932-51-19 19:15:06* Test Item Value Reference Range Interpretation Comme nts POCT Molecular Strep (test c ode = 80043-2) Negative Negative Lab Interpretation (test cod e = 25420-3) Normal [facility] URINALYSIS W/O SPECIFIC GMEKFAW8570-94-54 13:51:00* Test Item Value Reference Range Interpretation Comme nts POCT PH U (test code = 3254) 6 mg/dl 5-8 POCT U LEUK EST (test code = 3263) 2+ Negative - Negative POCT U NIT (test code = 3262) positive Negative - Negati ve POCT U PROT (test code = 3259) trace Negative - Negat moiz POCT U GLU (test code = 3256) neg Negative - Negati ve POCT U KETONE (test code = 3258) neg Negative - Neg ative POCT U BLD (test code = 3257) large Negative - Negati ve [facility] Notes Date/Time Note Provider Source 2024-02-25 11:00:00 vaWzbQxulkk8fyarAS+l YH09XGm1FdBdFc lWUZjILA2W2UQVUDJwd5UsjVCDAlzg9081 -04-29T11:00:00 Images from the original note were not included.Venipuncture collection performed by clean technique on the left anticubitus. Total of 1 attempts were made. Slight pressure and a bandage/dressing were applied to the site(s). The patient experienced no complications. The following specimens were processed according to instructions and sent to [facility] laboratories per lab order on 02/25/2024:LT BLUESST 3RED 1LAV 2PPTDK GREEN (LiHep)DK GREEN (SodH)GRAYDK BLUE (K2)DK BLUE (S)ACDBlood CultureNIPT/NTD 43806-2Qbgcb IeurGE5875-35-88Q72:52:36Nurse NoteTXT1.2.840.136059.1.13.104.2.7 .2.440279|[id number] for patient qqfw87300-2Qudlc NoteLNNARRATIVEFormatted C-CDA narrative [id number] 94ZYYOSYZNTXUXXGHVTLVTXP4189-61-26 T10:52:361.2.840.114833.1.72.3.15| 1.2.840.804123.1.13.104.2.7.2.7278 [id number] [facility] 2024-02-25 10:00:00 tsWgPHGAQ+5woNcaBD/4 HQ68USs1ltw5Ry sDpTd5Sx/J8O8Rq0W8eg97BkNUUF375192 -04-29T10:00:00Addended by: KAI GALEANA MA on: 02/25/2024 11:57 AMModules accepted: Orders 55078-1Dawdfvcd DbkunmxkLO4252-05-24G91:57:09Adden dum DocumentTXT1.2.840.581239.1.13.104 .2.7.2.424567|[id number] e for patient sshf80183-2MgjxNWTQCGOCSRQMnxptkxn d C-CDA narrative [id number] 30PTAUBQLIVPHPTHNIFQNLRY2913-12-87 T11:57:091.2.840.486285.1.72.3.15| 1.2.840.493653.1.13.104.2.7.2.7278 [id number] [facility] 2023-06-28 11:31:52 5YeZyCn6G4Mip/RzBlUi dJHewfp3FtCBuc wNhJ1owGzeYUV4bUdsnnhGN0TNGT2q3340 -08-31T11:31:52 Patient will be seen in clinic today. Closing encounter 88378-4Zggyqcmru encounter DikkZP4705-87-56W20:32:08Telephone encounter NoteTXT1.2.840.968692.1.13.104.2.7 .2.130958|[id number] for patient dsiq32997-0ZijsWS348660220Ansqqhg Adkins [address] 85XPRCYCUUNWHKRRWYQHDDLJ0952-54-56 T11:32:081.2.840.336193.1.72.3.15| 1.2.840.456398.1.13.104.2.7.2.7278 [id number] Tamara Clements LVN [facility] 2023-06-28 10:38:21 RbLwKetOzlscXJcoqahh RZHYWgDK8ekCt6 /ZFFkjp1Zr74kxwSV5kk5eEeGkyk4R2237 -08-31T10:38:21 Patient returning missed call form Nurse Dorothy. 50121-0Zefrgqtag encounter LxymPB7548-92-26Z25:39:04Telephone encounter NoteTXT1.2.840.737320.1.13.104.2.7 .2.911418|[id number] for patient amel61473-5JgooQX6531038Glvnp [address]TXTX[address] 94HTZQXTHHWXKCXGYXIGZDWG7808-08-65 T10:39:041.2.840.992283.1.72.3.15| 1.2.840.906565.1.13.104.2.7.2.7278 [id number] Iva Burnette [facility] 2023-06-28 09:26:05 8t/D2csJ3yKOPapWxyry YgRFRG+PmfPL6I 0ZSVtD8edDeN0DXTuVJECPDeNOw+s+2022T09:26:05 ABBIEM to call clinic. 45518-4Yhnmhefnp encounter CoelVU0619-76-93N39:26:31Telephone encounter NoteTXT1.2.840.027755.1.13.104.2.7 .2.869506|[id number] for patient lder12542-5ZmnlOX030929222Cuobo [place] [address] 38RRFUDPDUOXDOQMPNJBOBUY7225-58-69 T09:26:311.2.840.741426.1.72.3.15| 1.2.840.465660.1.13.104.2.7.2.7278 [id number] Dorothy Aguila LVN [facility] 2023-06-28 08:25:07 bxr5QVBUGHRWz+8g5+AN Bhf99Ae9rLhtAS SeDvzIDLaLxO2lSmS/WF0lY2b0y7zs9427 -08-31T08:25:07 Tierra Wong is a 27 year old femalePainful open wound under breast, not healing. Patient states per Dr. Hayden she was told to call and come in if any issues. Please advise. 54906-8Itqosfzmc encounter RcbwED9055-25-48G61:26:31Telephone encounter NoteTXT1.2.840.042521.1.13.104.2.7 .2.723214|[id number] for patient bygn79444-5LsncCUIHCDKYXF[address]TXTX[address] 99YSLUIVSUNRPAFLQDIUXMSN4085-79-06 T08:26:311.2.840.721172.1.72.3.15| 1.2.840.783156.1.13.104.2.7.2.7278 [id number] [facility] 2023-06-26 16:10:09 x5bTX6WxnMUtq/KF8Pb8 xy1pXGZ6MZhP4/ 12XquOjyQrKED2QUmACsaaovqCL8Ed3918 -08-29T16:10:09 Spoke with patient and she said OK that is fine but she is asking that the provider send Tylenol to her pharmacy. 31308-4Dsoaqbtup encounter PqykTR6596-73-04D43:11:32Telephone encounter NoteTXT1.2.840.791969.1.13.104.2.7 .2.805527|[id number] for patient fxwz55557-8UqbdXN696174358Jfehllt Adkins [address] 81OHZPKWAJBNOFEVXBGRBIMI0271-13-21 T16:11:321.2.840.655418.1.72.3.15| 1.2.840.366215.1.13.104.2.7.2.7278 [id number] Tamara Clements [employer] APPRAISER [facility] 2023-06-26 14:46:05 9SOTPZfKHXVrRxGemxP0 ohn+/FynXZ814R ob8XlAjT2V5PhK2+8/LmFEtUxhoa327776 -08-29T14:46:05 I would try the regimen below I mentioned, if not we need to see her. You can overbook her in my clinic. 62363-3Xnsowptho encounter MapfIK7320-40-27W84:46:37Telephone encounter NoteTXT1.2.840.225648.1.13.104.2.7 .2.013855|[id number] for patient byxw35974-2GmqoTKMEOKEYQK[address] 54WPLGHBBFWQGAPNUQSVXFXX0988-01-65 T14:46:371.2.840.216065.1.72.3.15| 1.2.840.724250.1.13.104.2.7.2.7278 [id number] [facility] 2023-06-26 14:35:30 cyBCfg/LHv3mOel8cVGE O0lV0hoXIFxbHf /DkwXdsOrvL2wBcyYG7kDJQMcDFA9R2895 -08-29T14:35:30 Pt states she is taking the antibiotic, states she cannot do basic daily tasks because the amount of pain she is in. States she cannot run, bend over, or wear a bra, etc. Patient still requesting pain medication. Please advise. 68454-9Zbzqnifxv encounter ZpaeWG8685-03-48K34:37:18Telephone encounter NoteTXT1.2.840.047622.1.13.104.2.7 .2.541980|[id number] for patient tdtj57841-8YzyzGA1515245Gksxu E [address] 15UJEQMHWYSVJENYRXWGNTNP0972-04-82 T14:37:181.2.840.457532.1.72.3.15| 1.2.840.770574.1.13.104.2.7.2.7278 [id number] Iva Ace [facility] 2023-06-26 09:08:19 i4E9UOtCDfihE/hn05pi 0tRwmm2Ix0mFTH cKj1uHkN7COSG50mWBwt8ei7ddWOIW0564 -08-29T09:08:19 Was she able to picker / packer the antibiotic? We usually don t give out pain meds even for much larger procedures. I d start by alternating Tylenol and Advil together first (ibuprofen every 6 hours and acetaminophen every 6 hours, alternating, so Take Tylenol, wait 3 hours, take Advil wait 3 hours Tylenol, etc). The antibiotics should calm it down. If it s really bad we need to see her back sooner. She has a follow up in two weeks. Thank you! 96527-9Pvbdqzwag encounter RpnhUF9064-95-73U46:08:19Telephone encounter NoteTXT1.2.840.874885.1.13.104.2.7 .2.954831|[id number] for patient hneo70849-6PmdoJSKXAELRCV[address]TXTX[address] 15OGMGNIFRNQJHLOTIHTWVMO5610-03-75 T09:08:191.2.840.032556.1.72.3.15| 1.2.840.473046.1.13.104.2.7.2.7278 [id number] [facility] 2023-06-26 08:26:14 H0c2d4SJGfpfG+olkVxP PW4gQoPHooqpol WdfL8iWQ05GMATn66vDTYHEtKpvZDD3191 -08-29T08:26:14 Spoke with patient and she stated that the mole under her breast that was removed on 06/20/2023 is infected and is causing excruciating pain. She is asking for pain medication because the ibuprofen she is taking is not helping. 'Routing to provider 46538-1Cmzjioyzv encounter JyajEH0023-99-78J04:28:23Telephone encounter NoteTXT1.2.840.309907.1.13.104.2.7 .2.845776|[id number] for patient bavn19870-8StbfRJ705683834Btmteif Adkins [address] QhzuWsghhwzueMtzipwgjyBNTO22395713 81LDCNJGXFZEBDJTHOFUGSXQ7498-36-27 T08:28:231.2.840.113190.1.72.3.15| 1.2.840.476052.1.13.104.2.7.2.7278 [id number] Tamara Clements LVN [facility] 2023-06-25 15:43:53 tYJkN3r5Sc+dHoMOARV/ E9UDP+CkMBfaAQ VI0ZCD4hg6hwTeXL6gUBdh1WkTxLBL1313 -08-28T15:43:53 Tierra Wong is a 27 year old femalePatient calling to request a rx for pain medicine to help with the mole removal she had that is infected. Please advise. 49956-7Zpqobywps encounter MtxfCQ1412-87-53F44:44:45Telephone encounter NoteTXT1.2.840.167498.1.13.104.2.7 .2.739347|[id number] for patient lewm44592-4JvmhOR3518548Vxxfv [address]TXTX[address] 01BKPSNOAFDXQMAPJEUBOCXL5330-67-93 T15:44:451.2.840.125883.1.72.3.15| 1.2.840.723482.1.13.104.2.7.2.7278 [id number] Iva Burnette [facility] 2023-06-20 13:30:00 UqnQezRRVk9XRcW81inB A5hBrdNvQHzWrG gKEaaKZPPlTivLzPe5vT4sOsUDhcq48652 -08-23T13:30:00 Addended by: JONELLE HOPPER MD on: 06/21/2023 02:13 PM Modules accepted: Level of Service 43212-8Sxqcykxo EoqxnnamVP8924-92-59X67:13:22Adden dum DocumentTXT1.2.840.911492.1.13.104 .2.7.2.767746|[id number] e for patient naoo39266-6LxvkSPPIN-EGFVVTHDWEF STAFFDER-DERMATOLOGY [address] 99MULDVAUTFTXICQMJSRTLKQ4883-62-89 T14:13:221.2.840.346268.1.72.3.15| 1.2.840.844116.1.13.104.2.7.2.7278 [id number] DEZ-DERMATOLOGY STAFF [facility]"
[2024-03-06 10:45] LABS: SARS-CoV-2 Antigen CONTROL BLUE LINE VIS/BG OK; SARS-CoV-2 Antigen Rapid Res Negative (Negative)
--- NOTE | 2024-03-06 11:04 | EDPHYS ---
Physician Documentation [facility] Name: Tierra Wong Age: 28 yrs Sex: Female : 1995 Arrival Date: 03/06/2024 Time: 09:45 Bed IW1 Private MD: ED Physician Mark Huerta HPI: 03/06 10:22 This 28 yrs old Female presents to ER via Ambulatory with complaints of Covid Symptoms. ms3 10:22 28-year-old female with no past medical history presents to the emergency department ms3 for cough, congestion, runny nose, sore throat, fatigue has been ongoing for 4 days. Patient states she is needing a COVID test for her job. Patient denies pain. She denies any fevers or chills.. Historical: - Allergies: 10:21 No Known Allergies; ph - PMHx: 10:21 None; ph - PSHx: 10:21 section; ph - Immunization history:: Adult Immunizations unknown. - Infectious Disease History:: Denies. - Social history:: Smoking status: Patient denies any tobacco usage or history of. ROS: 10:22 Constitutional: Negative for fever, and chills. Neck: Negative for injury, pain, and ms3 swelling, Cardiovascular: Negative for chest pain, and palpitations. 10:22 MS/Extremity: Negative for injury and deformity, Skin: Negative for injury, rash, and discoloration, 10:22 ENT: Positive for nasal discharge, rhinorrhea, sinus congestion, 10:22 Respiratory: Positive for cough, Exam: 10:22 Constitutional: This is a well developed, well nourished patient who is awake, alert, ms3 and in no acute distress. Head/Face: Normocephalic, atraumatic. Chest/axilla: Normal chest wall appearance and motion. Nontender with no deformity. Cardiovascular: Regular rate and rhythm with a normal S1 and S2. No gallops, murmurs, or rubs. Normal PMI, no JVD. No pulse deficits. Respiratory: Lungs have equal breath sounds bilaterally, clear to auscultation and percussion. No rales, rhonchi or wheezes noted. No increased work of breathing, no retractions or nasal flaring. Abdomen/GI: Soft, non-tender, with normal bowel sounds. No distension or tympany. No guarding or rebound. No evidence of tenderness throughout. Skin: Warm, dry with normal turgor. Normal color with no rashes, no lesions, and no evidence of cellulitis. MS/ Extremity: Pulses equal, no cyanosis. Neurovascular intact. Full, normal range of motion. Vital Signs: 10:15 BP 114 / 71; Pulse 84; Resp 17; Temp 98.5; Pulse Ox 100% on R/A; Weight 61.23 kg; ph Height 5 ft. 2 in. ; 10:15 Body Mass Index 24.69 (61.23 kg, 157.48 cm) ph MDM: 10:22 Differential Diagnosis: Upper Respiratory Infection Viral Syndrome Other COVID. ms3 10:32 Patient medically screened. ms3 11:04 Data reviewed: vital signs, nurses notes, lab test result(s), and as a result, I will ms3 discharge patient. Counseling: I had a detailed discussion with the patient and/or guardian regarding the historical points, exam findings, and any diagnostic results supporting the discharge/admit diagnosis, lab results, the need for outpatient follow up, to return to the emergency department if symptoms worsen or persist or if there are any questions or concerns that arise at home. Special discussion: I discussed with the patient/guardian in detail that at this point there is no indication for admission to the hospital. It is understood, however, that if the symptoms persist or worsen the patient needs to return immediately for re-evaluation. ED course: Discussed negative COVID results with patient. Patient to follow-up with Dr. Sheikh in 2 to 3 days. Patient understands and agrees with plan. All questions were answered. Return precautions discussed include worsening symptoms, or any other concerns. 03/06 10:19 Order name: FAUSTINO ROD; Complete Time: 10:58 ms3 Administered Medications: No medications were administered Disposition Summary: 03/06/24 11:04 Discharge Ordered Notes: Location: Home ms3 Condition: Stable ms3 Diagnosis - Cough ms3 - Nasal congestion ms3 Followup: ms3 - With: Anshu Sheikh DO - When: 2 - 3 days - Reason: Recheck today's complaints Discharge Instructions: - Discharge Summary Sheet ms3 - Cough, Adult ms3 Forms: - Work release form aa5 - Medication Reconciliation Form ms3 - Antibiotic Education ms3 - Prescription Opioid Use ms3 - Patient Portal Instructions ms3 - Leadership Thank You Letter ms3 Signatures: Dispatcher [employer] Nayely Steele, AREIL RN ph Mark Huerta DO DO ms3 Corrections: (The following items were deleted from the chart) 10:21 10:21 PMHx: Unable to Obtain; ph ph
--- NOTE | 2024-03-06 11:04 | ER ---
Nurse's Notes [facility] Name: Tierra Wong Age: 28 yrs Sex: Female : 1995 Arrival Date: 03/06/2024 Time: 09:45 Bed IW1 Private MD: Diagnosis: Cough;Nasal congestion Presentation: 03/06 10:15 Chief complaint: Patient states: Stuffy nose, sore throat, and fatigue for approx 5 ph days, requesting covid test. Coronavirus screen: Vaccine status: Patient reports receiving the 2nd dose of the covid vaccine. Ebola Screen: No symptoms or risks identified at this time. Initial Sepsis Screen: Does the patient meet any 2 criteria? No. Patient's initial sepsis screen is negative. Does the patient have a suspected source of infection? No. Patient's initial sepsis screen is negative. Risk Assessment: Do you want to hurt yourself or someone else? Patient reports no desire to harm self or others. Onset of symptoms was March 06, 2024. 10:15 Method Of Arrival: Ambulatory ph 10:15 Acuity: [place] 4 ph Triage Assessment: 10:25 General: Appears in no apparent distress. Behavior is calm, cooperative. Pain: Denies ph pain. EENT: Reports nasal congestion nasal discharge. Neuro: Level of Consciousness is awake, alert, obeys commands, Oriented to person, place, time, situation. Historical: - Allergies: 10:21 No Known Allergies; ph - PMHx: 10:21 None; ph - PSHx: 10:21 section; ph - Immunization history:: Adult Immunizations unknown. - Infectious Disease History:: Denies. - Social history:: Smoking status: Patient denies any tobacco usage or history of. Screenin:51 [facility] ED Fall Risk Assessment (Adult) History of falling in the last 3 months, ph including since admission No falls in past 3 months (0 pts) Confusion or Disorientation No (0 pts) Intoxicated or Sedated No (0 pts) Impaired Gait No (0 pts) Mobility Assist Device Used No (0 pt) Altered Elimination No (0 pt) Score/Fall Risk Level 0 - 2 = Low Risk Oriented to surroundings, Maintained a safe environment, Hourly rounding (assess needs \T\ fall precautionary measures) done. Abuse screen: Denies threats or abuse. Denies injuries from another. Nutritional screening: No deficits noted. Tuberculosis screening: No symptoms or risk factors identified. Assessment: 10:57 General: SEE TRIAGE ASSESSMENT. ph Vital Signs: 10:15 BP 114 / 71; Pulse 84; Resp 17; Temp 98.5; Pulse Ox 100% on R/A; Weight 61.23 kg; ph Height 5 ft. 2 in. ; 10:15 Body Mass Index 24.69 (61.23 kg, 157.48 cm) ph ED Course: 09:45 Patient arrived in ED. rg4 09:58 Mark Huerta DO is Attending Physician. ms3 10:20 Triage completed. ph 10:21 Arm band placed on Patient placed in waiting room, Patient notified of wait time. ph 10:42 Nayely Blue RN is Primary Nurse. ph 10:51 Patient has correct armband on for positive identification. ph 10:52 No provider procedures requiring assistance completed. Patient did not have IV access ph during this emergency room visit. 11:04 Anshu Sheikh DO is Referral Physician. ms3 Administered Medications: No medications were administered Medication: 10:21 VIS not applicable for this client. ph Outcome: 11:03 Discharged to home ambulatory, ph 11:03 Condition: good 11:03 Discharge instructions given to patient, Instructed on discharge instructions, follow up and referral plans. Demonstrated understanding of instructions, follow-up care, 11:04 Discharge ordered by MD. ms3 11:11 Patient left the ED. ph Signatures: Nayely Blue RN RN Starr Vasquez rg4 Mark Huerta DO DO ms3 Corrections: (The following items were deleted from the chart) 10:21 10:21 PMHx: Unable to Obtain; ph ph
[2024-03-06 11:39] VITALS: BP 114/71; TEMP 98.5; O2SAT 100
== END 2024-03-06 11:11 | disposition home or self-care (01) ==
LOC: ER 09:45
DX: R05.9 Cough, unspecified (principal); R09.81 Nasal congestion; Z11.52 Encounter for screening for COVID-19
CPT/HCPCS: 36415; 87811; 99282